=== PATIENT | female | born 1950 | race Caucasian/White ===

== ENCOUNTER 2018-04-20 15:38 | Outpatient (CLI) | payer MEDICARE | END 2018-04-20 15:39 | disposition home or self-care (01) | LOC: RT 15:38 | PROVIDERS: ATTEND Pain Medicine Interventional Pain Medicine | DX: Z01.810 Encounter for preprocedural cardiovascular examination (principal) ==

== ENCOUNTER 2021-05-29 11:17 | Outpatient (CLI) | payer MEDICARE, BC | END 2021-05-29 11:18 | disposition home or self-care (01) | LOC: LAB 11:17 | PROVIDERS: ATTEND Student in an Organized Health Care Education/Training Program | DX: R25.2 Cramp and spasm (principal) | CPT/HCPCS: 36415; 82728; 83735 ==

== ENCOUNTER 2021-07-21 10:02 | Outpatient (CLI) | payer MEDICARE ==
[2021-07-21 10:37] LABS: ALBUMIN 4.4 g/dL (3.2-5.5); ALBUMIN/GLOBULIN RATIO 1.4 (1.0-2.2); BILIRUBIN,TOTAL 0.2 mg/dL (0.2-1.0); CALCIUM 9.8 mg/dL (8.5-10.3); CREATININE 1.1 mg/dL (0.4-1.0); POTASSIUM 4.4 mmol/L (3.5-5.0); TOTAL PROTEIN 7.6 g/dL (6.7-8.2)
[2021-07-21 12:05] LABS: ESTIMATED AVERAGE GLUCOSE 189 mg/dL (70-100); HEMOGLOBIN A1c% 8.2 % (4.27-6.07)
== END 2021-07-21 10:03 | disposition home or self-care (01) ==
LOC: LAB 10:02
PROVIDERS: ATTEND Nurse Practitioner
DX: E11.9 Type 2 diabetes mellitus without complications (principal)
CPT/HCPCS: 36415; 80053; 82043; 83036

== ENCOUNTER 2021-10-22 10:48 | Outpatient (CLI) | payer MEDICARE | END 2021-10-22 10:49 | disposition short-term general hospital (02) | LOC: EMS 10:48 | DX: Z04.3 Encounter for examination and observation following other accident (principal); M25.512 Pain in left shoulder; M25.552 Pain in left hip | CPT/HCPCS: A0425; A0427 ==

== ENCOUNTER 2022-05-11 15:09 | Outpatient (CLI) | payer MEDICARE ==
--- NOTE | 2022-05-12 12:27 | DEXA Report ---
PROCEDURE: Dexa Forearm INDICATIONS: OSTEOPOROSIS TECHNIQUE: Dual energy x-ray absorptiometry (DXA) was performed on a Synchris System. Regions measur ed are the AP Spine, femoral neck, and if needed forearm. COMPARISON: None. FINDINGS: Lumbar Spine: Not scanned due to hardware Left Femoral Neck: Not scanned due to hardware Left forearm (radius one third): Bone Mineral Density 0.527 g/cm/cm, T score -4.0, osteoporosis (T score greater or equal to -1.0: NORMAL) (T score from -1.1 to -2.4: OSTEOPENIA) (T score less than or equal to -2.5 to: OSTEOPOROSIS) Impression: 1. Based on forearm bone mineral density, the patient is osteoporotic and has a high-risk of fracture . Patients with diagnosis of osteoporosis or osteopenia should have regular bone mineral density assess ment. For those eligible for Medicare, routine testing is allowed once every 2 years. Testing frequ ency can be increased for patients who have rapidly progressing disease or for those who are receivin g medical therapy to restore bone mass. Reviewed by: Sarah Teixeira MD on 05/12/2022 12:26 PM PST Approved by: Sarah Teixeira MD on 05/12/2022 12:26 PM PST Station ID: [id number]
== END 2022-05-11 15:10 | disposition home or self-care (01) ==
LOC: DI 15:09
PROVIDERS: ATTEND Student in an Organized Health Care Education/Training Program
DX: M81.0 Age-related osteoporosis without current pathological fracture (principal)

== ENCOUNTER 2025-01-25 10:13 | Inpatient (IN) ==
--- OUTSIDE RECORDS SUMMARY | 2025-01-25 10:36 | EXTERNAL MEDICAL SUMMARY RPT | Continuity of Care Document ---
Author Organization [place] Address [address] [address] Phone Problems date description facility 2024-12-21 15:44 Anemia, unspecified [facility] 2024-12-21 15:44 Other specified soft tissue dis orders [facility] 2024-12-21 15:44 Weakness [facility] 2025-01-04 10:27 Right lower quadrant pain [facility] 2025-01-04 10:28 Right lower quadrant pain [facility] 2025-01-04 10:31 Localized edema [facility] Results/Labs test date facility value unit notes Result panel 1 NUCLEATED RED BLOOD CELLS AUTO 2024-12-18 19:03 [facility] 0.0 /100wbc (missing) NRBC ABSOLUTE COUNT (AUTO) 2024-12-18 19:03 [facility] 0.00 x10 3/ul (missing) BASOPHILS # (AUTO) 2024-12-18 19:03 [facility] 0.1 10 3/ul (missing) EOSINOPHILS # (AUTO) 2024-12-18 19:03 [facility] 0.2 10 3/ul (missing) BILIRUBIN,TOTAL 2024-12-18 19:03 [facility] 0.5 mg/dl As of December 2022 testing method has changed, this may include reference ranges. MONOCYTES # (AUTO) 2024-12-18 19:03 [facility] 1.0 10 3/ul (missing) CREATININE 2024-12-18 19:03 [facility] 1.0 mg/dl As of December 2022 testing method has changed, this may include reference ranges. ALBUMIN/GLOBULIN RATIO 2024-12-18 19:03 [facility] 1.2 (missing) (missing) LYMPHOCYTES # (AUTO) 2024-12-18 19:03 [facility] 1.5 10 3/ul (missing) WHITE BLOOD COUNT 2024-12-18 19:03 [facility] 10.4 x10 3/ul (missing) SODIUM 2024-12-18 19:03 [facility] 134 mmol/l (missing) IRON 2024-12-18 19:03 [facility] 14 ug/dl As of December 2022 testing method has changed, this may include reference ranges. RED CELL DISTRIBUTION WIDTH 2024-12-18 19:03 [facility] 18.9 % (missing) GLUCOSE 2024-12-18 19:03 [facility] 189 mg/dl As of December 2022 testing method has changed, this may include reference ranges. RBC MORPHOLOGY (MULTIPLE) 2024-12-18 19:03 [facility] 2+ MICROCYTOSIS (missing) (missing) GLOBULIN 2024-12-18 19:03 [facility] 2.7 g/dl (missing) RED BLOOD COUNT 2024-12-18 19:03 [facility] 2.73 10 6/ul (missing) HCT - HEMATOCRIT 2024-12-18 19:03 [facility] 20.5 % (missing) MEAN CORPUSCULAR HEMOGLOBIN 2024-12-18 19:03 [facility] 20.9 pg (missing) BUN - BLOOD UREA NITROGEN 2024-12-18 19:03 [facility] 21 mg/dl As of December 2022 testing method has changed, this may include reference ranges. PLT - PLATELET COUNT 2024-12-18 19:03 [facility] 238 10 3/ul (missing) CARBON DIOXIDE - CO2 2024-12-18 19:03 [facility] 27 mmol/l As of December 2022 testing method has changed, this may include reference ranges. MEAN CORPUSCULAR HGB CONC 2024-12-18 19:03 [facility] 27.8 g/dl (missing) % IRON SATURATION 2024-12-18 19:03 [facility] 3 % (missing) RBC MORPHOLOGY (MULTIPLE) 2024-12-18 19:03 [facility] 3+ ANISOCYTOSIS (missing) (missing) RBC MORPHOLOGY (MULTIPLE) 2024-12-18 19:03 [facility] 3+ HYPOCHROMASIA (missing) (missing) ALBUMIN 2024-12-18 19:03 [facility] 3.2 g/dl As of December 2022 testing method has changed, this may include reference ranges. POTASSIUM 2024-12-18 19:03 [facility] 3.3 mmol/l As of December 2022 testing method has changed, this may include reference ranges. ALT ALANINE AMINOTRANSFERASE 2024-12-18 19:03 [facility] 30 iu/l As of December 2022 testing method has changed, this may include reference ranges. TRANSFERRIN 2024-12-18 19:03 [facility] 310 mg/dl As of December 2022 testing method has changed, this may include reference ranges. TOTAL IRON BINDING CAPACITY 2024-12-18 19: [facility] 434 ug/dl (missing) AST ASPARTATE AMINOTRANSFERASE 2024-12-18 19:03 [facility] 46 iu/l As of December 2022 testing method has changed, this may include reference ranges. BNP - B-NATRIURETIC PEPTIDE 2024-12-18 19:03 [facility] 487 pg/ml (missing) HGB - HEMOGLOBIN 2024-12-18 19:03 [facility] 5.7 g/dl Called to ED/SHIRA WATKINS by Luciano Hernandez [place]([facility]) [place] [address]/18/24. Read back(Y/N)? Y TOTAL PROTEIN 2024-12-18 19:03 [facility] 5.9 g/dl As of December 2022 testing method has changed, this may include reference ranges. GFR - MDRD 2024-12-18 19:03 [facility] 54 (missing) Social History date description facility
--- NOTE | 2025-01-25 10:39 | ED Physician Documentation ---
History of Present Illness Stated complaint Stated Complaint: CONFUSION, LOSS OF VISION, WEAKNESS Chief complaint Chief Complaint: General History obtained from History obtained from: Patient and Family Additonal information Additional information: 74-year-old with history of cirrhosis of unclear etiology. Was never really a drinker of significance. Is brought in by her today with progressive confusion over the last 5 days or so. Most of the history is from the because of her confusion. This all started a few months ago when she had edema. Since then, the edema is much better now that she is on diuretics. She is seeing a Dr. Mock, gastroenterology in [place]. She is supposed to be taking lactulose but has been noncompliant. Patient has no physical complaints except for chronic back pain. [place] Coma Scale Assess Eye opening: To Voice Verbal response: Confused Motor response: Obeys Commands Total score: 13 Meds/Allgy Allergies Allergies Allergy/AdvReac Type Severity Reaction Status Date / Time Penicillins Allergy Severe Anaphylaxis Verified 01/25/25 10:21 hydromorphone (From Dilaudid) Allergy Intermediate Headache Verified 01/25/25 10:21 Sulfa (Sulfonamide Allergy Mild Nausea Verified 01/25/25 10:21 Antibiotics) PFSH Active Problems All Active Problems (Updated 01/25/25 @ 12:16 by Samuel Mane MD) Cellulitis of left leg (Acute) Acute encephalopathy (Acute) Iron deficiency anemia (Acute) Heme positive stool (Acute) Acute anemia (Acute) Hepatocellular damage (Acute) Ascites (Acute) Medical History Medical History (Updated 01/25/25 @ 12:16 by Samuel Mane MD) Diabetes type 2, controlled Social History Social History Do you feel safe in your home environment?: Yes History of physical, verbal, emotional, or financial abuse?: No Exam Exam Vital Signs: Vital Signs x48h Temp Pulse Resp BP Pulse Ox 01/25/25 12:14 88 20 138/71 H 99 01/25/25 11:44 92 21 140/69 H 99 01/25/25 11:14 100 26 H 129/62 99 01/25/25 10:44 98 16 127/65 99 01/25/25 10:44 98 22 127/65 100 01/25/25 10:36 99 01/25/25 10:18 36.5 C 100 18 105/65 99 Constitutional normal general appearance and no apparent distress She is somnolent but awakens easily to voice. She is alert and oriented to person and place but not time/year or year and season. Eyes PERRL Respiratory breath sounds equal bilaterally and normal respiratory effort Cardiovascular Borderline resting tachycardia with hyperdynamic precordium. Regular rhythm without murmur. Gastrointestinal abdomen normal to inspection, abdomen soft to palpation and nontender to palpation Neurology GCS calculation - Eye opening: To Voice Verbal response: Confused Motor response: Obeys Commands [place] Coma Scale total score: 13 Results Vitals Vitals: Vital Signs - 24 hr 01/25/25 10:18 01/25/25 10:36 01/25/25 10:44 Temperature 36.5 C Temperature Source Temporal Artery Scan Pulse Rate 100 98 Respiratory Rate 18 22 Blood Pressure 105/65 127/65 O2 Saturation 99 99 100 O2 Source Room air Pain Intensity 0 01/25/25 10:44 01/25/25 11:14 01/25/25 11:44 Temperature Temperature Source Pulse Rate 98 100 92 Respiratory Rate 16 26 H 21 Blood Pressure 127/65 129/62 140/69 H O2 Saturation 99 99 99 O2 Source Pain Intensity 01/25/25 12:14 Temperature Temperature Source Pulse Rate 88 Respiratory Rate 20 Blood Pressure 138/71 H O2 Saturation 99 O2 Source Pain Intensity Oxygen O2 Source Room air Labs Labs: Laboratory Tests 01/25/25 01/25/25 01/25/25 10:40 10:40 11:42 WBC 11.6 H RBC 3.68 L Hgb 10.0 L Hct 32.1 L MCV 87.2 MCH 27.2 MCHC 31.2 L RDW 24.2 H Plt Count 263 MPV 10.0 Neut # (Auto) 8.3 H Lymph # (Auto) 1.6 Band[place] # (Auto) 1.0 Eos # (Auto) 0.5 Baso # (Auto) 0.1 Absolute Nucleated RBC 0.00 Nucleated RBC % 0.0 Manual Slide Review Indicated Platelet Estimate NORMAL (130-450,000) Platelet Morphology NORMAL APPEARANCE RBC Morph Micro Appear 2+ HYPOCHROMASIA 3+ ANISOCYTOSIS PT 12.4 INR 1.1 Sodium 130 L Potassium 3.8 Chloride 91 L Carbon Dioxide 29 Anion Gap 10.0 BUN 28 H Creatinine 1.1 Estimated GFR (MDRD) 49 L Glucose 361 H Calcium 9.7 Total Bilirubin 0.6 AST 27 ALT 25 Alkaline Phosphatase 118 Ammonia 66.8 Total Protein 8.1 Albumin 4.3 Globulin 3.8 Albumin/Globulin Ratio 1.1 Urine Color YELLOW Urine Clarity CLEAR Urine pH 6.0 Ur Specific [place] 1.015 Urine Protein NEGATIVE Urine Glucose (UA) 500 H Urine Ketones NEGATIVE Urine Occult Blood NEGATIVE Urine Nitrite NEGATIVE Urine Bilirubin NEGATIVE Urine Urobilinogen 0.2 (NORMAL) Ur Leukocyte Esterase NEGATIVE Ur Microscopic Review NOT INDICATED Urine Culture Comments NOT INDICATED Urine Opiates Screen NEGATIVE Ur Buprenorphine Scrn NEGATIVE Ur Oxycodone Screen POSITIVE H Urine Methadone Screen NEGATIVE Urine Fentanyl Screen Negative Ur Barbiturates Screen NEGATIVE Ur Tricyclics Screen NEGATIVE Ur Phencyclidine Scrn NEGATIVE Ur Amphetamine Screen NEGATIVE U Methamphetamines Scrn NEGATIVE U Benzodiazepines Scrn NEGATIVE Urine Cocaine Screen NEGATIVE U Cannabinoids Screen NEGATIVE Ur Drug Screen Comment CUTOFF CONC BELOW: Ethyl Alcohol < 10.0 Blood Type O POSITIVE Antibody Screen NEGATIVE PD Medical Decision Making ED course ED course: 74-year-old woman with her history of cirrhosis presents with progressive encephalopathy over the last few days. Workup demonstrates normal ammonia levels, mild leukocytosis and mild anemia with some CKD and elevated blood sugar. On reexamination nurse had noted a red area on the back of her left calf and she does have significant nonpurulent cellulitis there. I will culture her up and give her IV vancomycin noting history of anaphylaxis to penicillins. Th ere will be some delay to admission due to lack of beds. Spoke with AYLA Moon for admission at 1:19 PM. The patient and family are counseled as to the diagnosis and need for admission. This document was made in part using voice recognition software, while efforts are made to proofread this document, sound alike an grammatical errors may occur. Discharge Plan Discharge Patient Disposition: [facility] DC/Xfer Condition: Stable Clinical Impression: Acute encephalopathy, Cellulitis of left leg Print Language: Yakut
[2025-01-25 10:51] LABS: HCT - HEMATOCRIT 32.1 % (37.0-47.0); HGB - HEMOGLOBIN 10.0 g/dL (12.0-16.0); MEAN PLATELET VOLUME 10.0 fL (7.9-10.8); NRBC ABSOLUTE COUNT (AUTO) 0.00 x10^3/uL; NUCLEATED RED BLOOD CELLS AUTO 0.0 /100WBC; PLT - PLATELET COUNT 263 10^3/uL (130-450); RED CELL DISTRIBUTION WIDTH 24.2 % (12.0-15.0)
[2025-01-25 10:53] LABS: SLIDE REVIEW? Indicated
[2025-01-25 10:55] LABS: INR 1.1 (0.8-1.2); PT - PROTHROMBIN TIME 12.4 secs (9.9-12.6)
[2025-01-25 11:05] LABS: ALT ALANINE AMINOTRANSFERASE 25 IU/L (10-60); AST ASPARTATE AMINOTRANSFERASE 27 IU/L (10-42); BUN - BLOOD UREA NITROGEN 28 mg/dL (6-20); CARBON DIOXIDE - CO2 29 mmol/L (21-32); CREATININE 1.1 mg/dL (0.6-1.3); ETOH - ETHANOL < 10.0 mg/dL; GFR - MDRD 49 (>89)
[2025-01-25 11:17] LABS: PLATELET ESTIMATE, MANUAL NORMAL (130-450,000) (NORMAL); PLATELET MORPHOLOGY NORMAL APPEARANCE (NORMAL)
--- NOTE | 2025-01-25 11:38 | CT Report ---
PROCEDURE: CT Head WO INDICATIONS: ams TECHNIQUE: CT of the head was performed, without intravenous contrast. Reformats: Coronal and sagittal. For radiation dose reduction, the following was used: automated exposure control, adjustment of mA and/or kV according to patient size. COMPARISON: None. FINDINGS: Image quality: Diagnostic. CSF spaces: Basal cisterns are patent. No extra-axial fluid collections. Ventricles are normal in size and shape. Brain: No midline shift. No intracranial mass effect or hemorrhage. Molina- white matter interface is normal. Age appropriate volume loss and mild, age appropriate periventricular white matter hypoattenuation, likely chronic ischemic change. Skull and face: Calvarium and visualized facial bones are intact, without suspicious lesions. Sinuses: Visualized sinuses and mastoids are clear. IMPRESSION: No acute intracranial pathology. Reviewed by: Phillip Yo MD on 01/25/2025 11:36 AM PDT Approved by: Phillip Yo MD on 01/25/2025 11:36 AM PDT Station ID: [id number]
[2025-01-25 12:00] LABS: AMPHETAMINE SCREEN,URINE NEGATIVE (NEGATIVE); BARBITURATE SCREEN,UR NEGATIVE (NEGATIVE); BENZODIAZEPINES SCREEN, URINE NEGATIVE (NEGATIVE); BUPRENORPHINE SCREEN, URINE NEGATIVE (NEGATIVE); COCAINE SCREEN URINE NEGATIVE (NEGATIVE); GLUCOSE, URINE (UA) 500 mg/dL (NEGATIVE); KETONES,URINE (UA) NEGATIVE (NEGATIVE); METHADONE SCREEN, URINE NEGATIVE (NEGATIVE); METHAMPHETAMINES SCREEN, URINE NEGATIVE (NEGATIVE); OCCULT BLOOD,URINE NEGATIVE (NEGATIVE); OPIATE SCREEN, URINE NEGATIVE (NEGATIVE); THC CANNABINOID SCREEN, URINE NEGATIVE (NEGATIVE)
[2025-01-25] MEDS: VANCOMYCIN INJ 1 GM, VANCOMYCIN INJ 250 MG in SODIUM CHLORIDE 0.9% 250 ML IV STA (12:56)
--- OUTSIDE RECORDS SUMMARY | 2025-01-25 13:44 | EXTERNAL MEDICAL SUMMARY RPT | Continuity of Care Document ---
Author Organization [facility] Address [address] [address] Phone Problems date description facility 2024-12-21 15:44 [...] 3/ul (missing) WHITE BLOOD COUNT 2024-12-18 19:03 [email or web address] 10.4 x10 3/ul (missing) SODIUM 2024-12-18 19:03 [email or web address] 134 mmol/l (missing) IRON 2024-12-18 19:03 [email or web address] 14 ug/dl As of December 2022 testing method has changed, this may include reference ranges. RED CELL DISTRIBUTION WIDTH 2024-12-18 19:03 [email or web address] 18.9 % (missing) GLUCOSE 2024-12-18 19:03 [email or web address] 189 mg/dl As of December 2022 testing method has changed, this may include reference ranges. RBC MORPHOLOGY (MULTIPLE) 2024-12-18 19:03 [email or web address] 2+ MICROCYTOSIS (missing) (missing) GLOBULIN 2024-12-18 19:03 [email or web address] 2.7 g/dl (missing) RED BLOOD COUNT 2024-12-18 19:03 [email or web address] 2.73 10 6/ul (missing) HCT - HEMATOCRIT 2024-12-18 19:03 [email or web address] 20.5 % (missing) MEAN CORPUSCULAR HEMOGLOBIN 2024-12-18 19:03 [email or web address] 20.9 pg (missing) BUN - BLOOD UREA NITROGEN 2024-12-18 19:03 [email or web address] 21 mg/dl As of December 2022 testing method has changed, this may include reference ranges. PLT - PLATELET COUNT 2024-12-18 19:03 [email or web address] 238 10 3/ul (missing) CARBON DIOXIDE - CO2 2024-12-18 19:03 [email or web address] 27 mmol/l As of December 2022 testing method has changed, this may include reference ranges. MEAN CORPUSCULAR HGB CONC 2024-12-18 19:03 [email or web address] 27.8 g/dl (missing) % IRON SATURATION 2024-12-18 19:03 [email or web address] 3 % (missing) RBC MORPHOLOGY (MULTIPLE) 2024-12-18 19:03 [email or web address] 3+ ANISOCYTOSIS (missing) (missing) RBC MORPHOLOGY (MULTIPLE) 2024-12-18 19:03 [email or web address] 3+ HYPOCHROMASIA (missing) (missing) ALBUMIN 2024-12-18 19:03 [email or web address] 3.2 g/dl As of December 2022 testing method has changed, this may include reference ranges. POTASSIUM 2024-12-18 19:03 [email or web address] 3.3 mmol/l As of December 2022 testing method has changed, this may include reference ranges. ALT ALANINE AMINOTRANSFERASE 2024-12-18 19:03 [email or web address] 30 iu/l As of December 2022 testing method has changed, this may include reference ranges. TRANSFERRIN 2024-12-18 19:03 [email or web address] 310 mg/dl As of December 2022 testing method has changed, this may include reference ranges. TOTAL IRON BINDING CAPACITY 2024-12-18 19: [email or web address] 434 ug/dl (missing) AST ASPARTATE AMINOTRANSFERASE 2024-12-18 19:03 [email or web address] 46 iu/l As of December 2022 testing method has changed, this may include reference ranges. BNP - B-NATRIURETIC PEPTIDE 2024-12-18 19:03 [email or web address] 487 pg/ml (missing) HGB - HEMOGLOBIN 2024-12-18 19:03 [email or web address] 5.7 g/dl Called to ED/SHIRA WATKINS by Luciano Hernandez MT([facility]) [place] [address]/18/24. Read back(Y/N)? Y TOTAL PROTEIN 2024-12-18 19:03 [email or web address] 5.9 g/dl As of December 2022 testing method has changed, this may include reference ranges. GFR - MDRD 2024-12-18 19:03 [email or web address] 54 (missing) Social History date description facility
[2025-01-25] MEDS ORDERED: ONDANSETRON 4 MG/2 ML VIAL IVP PRN (14:04)
[2025-01-25] MEDS ORDERED: ONDANSETRON ODT 4 MG TABLET TL PRN (14:04)
[2025-01-25] MEDS ORDERED: SODIUM CHLORIDE FLUSH 0.9% 10 ML SYRINGE IVP PRN (14:04)
--- NOTE | 2025-01-25 14:10 | HISTORY & PHYSICAL EXAMINATION ---
Chief Complaint Chief Complaint Chief Complaint: confusion and weakness History of Present Illness History Obtained From Records Reviewed: previous ED visits History obtained from: Patient Exam Limitations: Patient is cognitively altered History of Present Illness HPI Comment/Other: 74F who presents to ED with 4 days of altered mental status, getting worse. no falls at home, no fevers. She says that she feels poorly, but that has been going on for many months now, almost a year. There is no one present at the bedside with her. She is not able to give much history. She is not able to tell me how she is feeling poorly, what is bothering her. She has a history of ascites, unclear etiology of her liver cirrhosis. on lactulose, Type 2 DM on glargine insulin, hypothyroidism, COPD, chronic pain, and iron def anemia She is able to tell me that she lives with her and son, the name of her PCP and that she no longer drives and walks with a walker. Meds/Allgy Home Medications Ambulatory Orders Medication Instructions Recorded Confirmed albuterol sulfate 2.5 mg/3 mL 2.5 mg inhalation Q4H WA N 01/25/25 01/25/25 (0.083 %) solution for nebulization shortness of breat h or wheezing albuterol sulfate 90 mcg/actuation 2 puff inhalation Q ID 01/25/25 01/25/25 aerosol inhaler cetirizine 10 mg tablet (Zyrtec) 5 mg PO DAILY 5 01/25/25 ferrous sulfate 325 mg (65 mg 325 mg PO Q48H 01/25/25 01/25/25 iron) tablet furosemide 40 mg tablet 40 mg PO TID 01/25/25 hydrochlorothiazide 25 mg tablet 25 mg PO DAILY PRN FL UID OVERLOAD 01/25/25 01/25/25 insulin glargine 100 unit/mL (3 24 unit subcut QPM 01/25/25 mL) subcutaneous pen (Lantus Solostar U-100 Insulin) lactulose 10 gram/15 mL oral 20 - 40 ml PO BID PRN con stipation 01/25/25 01/25/25 solution (Enulose) levothyroxine 75 mcg tablet 75 mcg PO QDAC 01/25/25 lidocaine 5 % topical patch 1 patch topical QAM 01/25/25 mometasone-formoterol HFA 50 mcg-5 2 inh inhalation BI D 01/25/25 01/25/25 mcg/actuation aerosol inhaler (Dulera) nortriptyline 10 mg capsule 10 mg PO HS 01/25/2501/25 nystatin 100,000 unit/gram topical 1 applic topical BI D 01/25/25 01/25/25 ointment oxycodone 5 mg tablet 5 - 10 mg PO BID PRN pain 01/25/25 potassium citrate 10 mEq (1,080 10 meq PO BID 01/25/25 01/25/25 mg) tablet,extended release spironolactone 100 mg tablet 100 mg PO DAILY 01/25/25 01/25/25 vitamin B complex (Vitamins B 1 cap PO DAILY 01/25/25 01/25/25 Complex capsule) Allergies Allergies Allergy/AdvReac Type Severity Reaction Status Date / Time Penicillins Allergy Severe Anaphylaxis Verified 01/25/25 10:21 hydromorphone (From Dilaudid) Allergy Intermediate Headache Verified 01/25/25 10:21 Sulfa (Sulfonamide Allergy Mild Nausea Verified 01/25/25 10:21 Antibiotics) PFSH Active Problems All Active Problems (Updated 01/25/25 @ 19:18 by AYLA Delarosa) Hypothyroid (Acute) Cellulitis of left leg (Acute) Acute encephalopathy (Acute) Iron deficiency anemia (Acute) Heme positive stool (Acute) Acute anemia (Acute) Hepatocellular damage (Acute) Ascites (Acute) Medical History Medical History (Updated 01/25/25 @ 19:18 by AYLA Delarosa) Diabetes type 2, controlled Family History Family History (Updated 01/25/25 @ 15:01 by Juno Escalante, QUINCY) Other Depressed Social History Social History Do you dip or chew tobacco?: No Do you vape?: No Do you feel safe in your home environment?: Yes History of physical, verbal, emotional, or financial abuse?: No Substance Use: denies use Review of Systems Status of ROS: unobtainable due to medical condition Prior Level of Functionality: no longer drives, uses a walker, lives w . Exam Exam Vital Signs: Vital Signs x48h Temp Pulse Resp BP Pulse Ox 01/25/25 16:40 36.4 C L 86 13 134/63 H 99 Constitutional appears chronically ill. oriented to self and place, but not time HENAL normocephalic and hearing grossly normal bilaterally Eyes conjunctivae normal and no scleral icterus Neck/C-Spine visual inspection normal and trachea midline Lymph no lymphadenopathy noted Chest inspection of chest normal Respiratory breath sounds equal bilaterally, normal respiratory effort and clear to auscultation bilaterally Cardiovascular normal heart rate noted Gastrointestinal abdomen soft to palpation and nondistended Extremities edema, left posterior calf cellulitis, with erythema and warmth. Neurology GCS 13 Psychiatry cooperative slow to answer questions Skin skin color normal cellulitis at left calf. Conclusion/Plan Problem List (1) Acute encephalopathy: Plan: Altered mental status in the setting of known liver cirrhosis, but normal ammonia levels. Patient has been non complaint with her lactulose, but this is likely non contributory. Discussed with Dr Mane in the ED and decision was made to admit the patient to observation status for further evaluation of her AMS. She has a GCS of 13: 2 points off for eyes open to voice and verbal for confusion. She has a mild leukocytosis and cellulitis of her left calf. Her encephalopathy could be multifactorial. Blood cultures have been ordered in the ED and she has been started on vancomycin (PCN allergy). I am continuing her diuretic tx for cirrhosis as well as lactulose 20gBID, and checking daily ammonia levels. She has no focal neurological deficit, therefore I will hold off on an MRI of the brain. (2) Cellulitis of left leg: Plan: non purulent cellulitis of the left calf. The patient was unaware of this. She is not particularly tender, no palpable cord or area of fluctuance. She has some mild excoration of bilateral lower extremities, as well as some elephant- skin like appearance of the lower extremites, as if she has recently had edema which has resolved. Anaphylactic allergy to PCN, so will start on Vanc, pharmacy to dose. She has a leukocytosis of 11.6, and has not run any fevers. (3) Diabetes type 2, controlled: Plan: She is on 24U daily of glargine insulin, at home. I do not see any other DM meds in her profile. here, i will give her 10u glarigine at HS and place her on low SSI. Prefer to avoid hypoglycemia. (4) Hypothyroid: Plan: home med of synthroid 75mcg has been restarted. I have spent 78 minutes in the care of this patient today. This includes time [id number], review and ordering of diagnostic imaging and laboratory studies and consultation with other providers. Monitoring the patient's signs symptoms, evaluation of medication effectiveness and patient's response to treatment. Lab Results Lab results reviewed: Yes 01/25/25 10:40 01/25/25 10:40 Core Measures Anticipated LOS I expect patient to be DC'd or transferred within 96 hours.: Yes Issues Hospital Issues and Management Plan: AMS, workup and observation, treatment of cellulitis, monitoring of WBC, follow blood cultures. DVT/VTE - Prophylaxis VTE/DVT Device ordered at admit?: Yes VTE/DVT Prophylaxis med ordered at admit?: Yes
[2025-01-25] MEDS: SODIUM CHLORIDE 0.9% 1,000 ML IV SCH (14:33)
--- NOTE | 2025-01-25 16:45 | PHARMACY PROGRESS NOTE ---
Best Possible Medication History Admit Date and Time: 01/25/25 [id number] Home Medications Medication Instructions Recorded Confirmed Type albuterol sulfate 2.5 mg/3 mL 2.5 mg inhalation Q4H PA N 01/25/25 01/25/25 History (0.083 %) solution for nebulization shortness of breat h or wheezing albuterol sulfate 90 mcg/actuation 2 puff inhalation Q ID 01/25/25 01/25/25 History aerosol inhaler cetirizine 10 mg tablet (Zyrtec) 5 mg PO DAILY 5 01/25/25 History ferrous sulfate 325 mg (65 mg 325 mg PO Q48H 01/25/25 01/25/25 History iron) tablet furosemide 40 mg tablet 40 mg PO TID 01/25/25 History hydrochlorothiazide 25 mg tablet 25 mg PO DAILY PRN FL UID OVERLOAD 01/25/25 01/25/25 History insulin glargine 100 unit/mL (3 24 unit subcut QPM 01/25/25 History mL) subcutaneous pen (Lantus Solostar U-100 Insulin) lactulose 10 gram/15 mL oral 20 - 40 ml PO BID PRN con stipation 01/25/25 01/25/25 History solution (Enulose) levothyroxine 75 mcg tablet 75 mcg PO QDAC 01/25/25 History lidocaine 5 % topical patch 1 patch topical QAM 01/25/25 History mometasone-formoterol HFA 50 mcg-5 2 inh inhalation BI D 01/25/25 01/25/25 History mcg/actuation aerosol inhaler (Dulera) nortriptyline 10 mg capsule 10 mg PO HS 01/25/2501/25 History nystatin 100,000 unit/gram topical 1 applic topical BI D 01/25/25 01/25/25 History ointment oxycodone 5 mg tablet 5 - 10 mg PO BID PRN pain 01/25/25 History potassium citrate 10 mEq (1,080 10 meq PO BID 01/25/25 01/25/25 History mg) tablet,extended release spironolactone 100 mg tablet 100 mg PO DAILY 08/21/25 08/21/25 History vitamin B complex (Vitamins B 1 cap PO DAILY 01/25/25 01/25/25 History Complex capsule) Processed by: Pharmacy Medications reviewed in ED?: No Medication History completed: Yes Patient Interview: Pt unable to participate Secondary Source(s): Written medication list and Insurance records [facility] Statement: As the person ultimately responsible for medication therapy, providers are able to order a medication from an existing home medication list in [facility] via the "Reconcile Routine" prior to Confirmation of that medication by support associate. Such practice is discouraged except when the physician, in their clinical jessica gment, deems that a medical need exists for a medication without regard to previous use.
[2025-01-25] MEDS: ACETAMINOPHEN 325 MG TABLET PO PRN (17:11)
[2025-01-25] MEDS: SODIUM CHLORIDE FLUSH 0.9% 10 ML SYRINGE IVP SCH (17:12)
[2025-01-25] MEDS ORDERED: ALBUTEROL NEB 2.5 MG/3 ML INH PRN (19:16)
[2025-01-25] MEDS ORDERED: LACTULOSE 10 GM /15 ML UDC PO PRN (19:16)
[2025-01-25] MEDS: FERROUS SULFATE 325 MG TABLET PO SCH (21:05)
[2025-01-25] MEDS: INSULIN GLARGINE-YFGN 300 UNIT/3 ML PEN SUBQ SCH (21:06)
[2025-01-25] MEDS: INSULIN LISPRO 300 UNIT/3 ML PEN SUBQ SCH (21:07)
[2025-01-25] MEDS: NORTRIPTYLINE 10 MG PO SCH (21:12)
[2025-01-25] MEDS: POTASSIUM CITRATE PO SCH (21:12)
[2025-01-25] MEDS: FUROSEMIDE 40 MG TABLET PO SCH (21:15)
[2025-01-26] MEDS: oxyCODONE 5 MG TABLET PO PRN (00:31)
[2025-01-26 05:56] LABS: HCT - HEMATOCRIT 34.2 % (37.0-47.0); HGB - HEMOGLOBIN 10.0 g/dL (12.0-16.0); MEAN PLATELET VOLUME 10.5 fL (7.9-10.8); NRBC ABSOLUTE COUNT (AUTO) 0.00 x10^3/uL; NUCLEATED RED BLOOD CELLS AUTO 0.0 /100WBC; PLT - PLATELET COUNT 278 10^3/uL (130-450); RED CELL DISTRIBUTION WIDTH 24.2 % (12.0-15.0)
[2025-01-26 06:05] LABS: SLIDE REVIEW? Indicated
[2025-01-26 06:20] LABS: BUN - BLOOD UREA NITROGEN 28.0 mg/dL (6-20); CARBON DIOXIDE - CO2 28.0 mmol/L (21-32); CREATININE 0.9 mg/dL (0.6-1.3); GFR - MDRD 61.0 (>89)
[2025-01-26 06:35] LABS: PLATELET ESTIMATE, MANUAL NORMAL (130-450,000) (NORMAL); PLATELET MORPHOLOGY NORMAL APPEARANCE (NORMAL)
[2025-01-26] MEDS: LEVOTHYROXINE 75 MCG TABLET PO SCH (06:47)
[2025-01-26] MEDS: ENOXAPARIN 40 MG/0.4 ML SYRINGE SUBQ SCH (08:59)
[2025-01-26] MEDS: SPIRONOLACTONE 25 MG TABLET PO SCH (08:59)
[2025-01-26] MEDS ORDERED: FORMOTEROL FUMARATE NEB 20 MCG/2 ML INH SCH (09:00)
[2025-01-26] MEDS: CETIRIZINE 10 MG TABLET PO SCH (09:00)
[2025-01-26] MEDS ORDERED: FLUTICASONE NASAL SPRAY NAS SCH (09:00)
[2025-01-26] MEDS: FORMOTEROL FUMARATE NEB 20 MCG/2 ML INH SCH (11:04)
[2025-01-26] MEDS: BUDESONIDE 0.5 MG/2 ML NEB INH SCH (11:04)
[2025-01-26 11:47] LABS: ESTIMATED AVERAGE GLUCOSE 143 mg/dL (70-100); HEMOGLOBIN A1c% 6.6 % (4.27-6.07)
[2025-01-26] MEDS ORDERED: VANCOMYCIN INJ 1 GM in SODIUM CHLORIDE 0.9% 250 ML IV SCH (13:00)
--- NOTE | 2025-01-26 14:57 | PROVIDER PROGRESS NOTE ---
Subjective Prog Note Date Prog Note Date: 01/26/25 Subjective Subjective: She feels like she is back at baseline. She is able to get to the bathroom with a walker. I noted the red rash on bilateral calves. She says she has had this itchy rash since last fall (She tells me that all of her symptoms started last fall). 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 Her baseline ammonia is unknown. Current Medications Current Medications Current Medications: Current Medications Generic Name Dose Route Start Last Admin Trade Name Freq PRN Reason Stop Dose Admin Acetaminophen 650 mg 01/25/25 14:04 01/25/25 17:11 Acetaminophen 325 Mg Tablet PO 650 mg Q4HR PRN Administration Pain 1 to 4, or Fever Albuterol 2.5 mg 01/25/25 19:16 Albuterol Neb 2.5 Mg/3 Ml INH Q4H PRN shortness of breath or wheezing Budesonide 0.5 mg 01/26/25 09:00 01/26/25 11:04 Budesonide 0.5 Mg/2 Ml Neb INH Not Given RTBID VANCE Cefazolin Sodium 2 gm 01/26/25 13:00 01/26/25 12:40 Cefazolin 2 Gm Vial IVP 2 gm Q8H VANCE Administration Cetirizine HCl 5 mg 01/26/25 09:00 01/26/25 09:00 Cetirizine 10 Mg Tablet PO 5 mg DAILY VANCE Administration Enoxaparin Sodium 40 mg 01/26/25 09:00 01/26/25 08:59 Enoxaparin 40 Mg/0.4 Ml Syringe SUBQ 40 mg DAILY VANCE Administration Ferrous Sulfate 325 mg 01/25/25 20:00 01/25/25 21:05 Ferrous Sulfate 325 Mg Tablet PO 325 mg Q48H VANCE Administration Formoterol Fumarate 20 mcg 01/26/25 09:00 01/26/25 11:04 Formoterol Fumarate Neb 20 Mcg/2 Ml INH Not Given RTBID VANCE Furosemide 40 mg 01/25/25 22:00 01/26/25 06:47 Furosemide 40 Mg Tablet PO 40 mg TID VANCE Administration Insulin Glargine-yfgn 10 unit 01/25/25 21:00 01/25/25 21:06 Insulin Glargine-Yfgn 300 Unit/3 Ml Pen SUBQ 10 unit QPM VANCE Administration Insulin Human Lispro 1 - 5 unit 01/25/25 21:00 01/26/25 12:22 Insulin Lispro 300 Unit/3 Ml Pen SUBQ 4 unit 0800,1200,1700,2100 VANCE Administration Protocol Lactulose 20 gm 01/25/25 19:16 Lactulose 10 Gm /15 Ml Udc PO BID PRN Constipation Levothyroxine Sodium 75 mcg 01/26/25 07:00 01/26/25 06:47 Levothyroxine 75 Mcg Tablet PO 75 mcg QDAC VANCE Administration Lidocaine 1 patch 01/25/25 20:00 01/26/25 08:59 Lidocaine Patch 4% TOP 1 patch DAILY VANCE Administration Patient Own Med (( 10 mg 01/25/25 21:00 01/25/25 21:12 Nortriptyline 10 Mg PO Not Given Capsule)) [facility] Ondansetron HCl 4 mg 01/25/25 14:04 Ondansetron 4 Mg/2 Ml Vial IVP Q6HR PRN Nausea / Vomiting Ondansetron HCl 4 mg 01/25/25 14:04 Ondansetron Odt 4 Mg Tablet TL Q6HR PRN Nausea / Vomiting Oxycodone HCl 5 mg 01/25/25 14:04 01/26/25 12:40 Oxycodone 5 Mg Tablet PO 5 mg Q4HR PRN Administration Pain 5 to 7 Potassium Chloride 10 meq 01/27/25 08:00 Potassium Chloride 10 Meq Capsule PO BIDWM [facility] Sodium Chloride 10 ml 01/25/25 14:04 Sodium Chloride Flush 0.9% 10 Ml Syringe IVP PRN PRN NEEDED PER PROVIDER ORDERS Sodium Chloride 10 ml 01/25/25 17:00 01/26/25 08:59 Sodium Chloride Flush 0.9% 10 Ml Syringe IVP 10 ml 0100,0900,1700 VANCE Administration Spironolactone 100 mg 01/26/25 09:00 01/26/25 08:59 Spironolactone 25 Mg Tablet PO 100 mg DAILY VANCE Administration Sterile Water 10 ml 01/26/25 13:00 01/26/25 12:40 Water For Injection,Sterile 10 Ml Vial MC 10 ml Q8H VANCE Administration Objective Vital Signs/Intake & Output Reviewed Vital Signs: Yes Intake & Output: Intake & Output 08/19/01/24/25 01/25/25 01/26/25 23:59 23:59 23:59 23:59 Intake Total 1010 / 1010 1485 / 1485 Output Total 1750 / 1750 Balance 1010 / 1010 -265 / -265 Weight (kg) 62 kg 59 kg Objective General Appearance: positive No acute distress and Alert Eyes Bilateral: positive Normal inspection and Conjunctivae nml ENT: positive ENT inspection nml Neck: positive Nml inspection Respiratory: positive Chest non-tender and Breath sounds nml Cardiovascular: positive Regular rate & rhythm Abdomen: positive No distention Skin: positive Color nml and Other (bilateral posterior calf erythematous warm rash with raised papules. not tender. no skin thickening as with chronic inflammation. ) Extremities: positive No pedal edema Neurologic/Psychiatric: positive Oriented x3 Lab Results 01/26/25 05:47 01/26/25 05:47 Other Labs: Lab Results x24hrs 01/26/25 01/26/25 01/26/25 Range/Units 11:50 07:58 05:47 WBC (4.8-10.8) x10^3/uL RBC (4.20-5.40) 10^6/uL Hgb (12.0-16.0) g/dL Hct (37.0-47.0) % MCV (81.0-99.0) fL MCH (27.0-31.0) pg MCHC (32.0-36.0) g/dL RDW (12.0-15.0) % Plt Count (130-450) 10^3/uL MPV (7.9-10.8) fL Neut # (Auto) (1.5-6.6) 10^3/uL Lymph # (Auto) (1.5-3.5) 10^3/uL [place] # (Auto) (0.0-1.0) 10^3/uL Eos # (Auto) (0.0-0.7) 10^3/uL Baso # (Auto) (0.0-0.1) 10^3/uL Absolute Nucleated RBC x10^3/uL Nucleated RBC % /100WBC Manual Slide Review Platelet Estimate (NORMAL) Platelet Morphology (NORMAL) RBC Morph Micro Appear 2+ HYPOCHROMASIA (NORMAL) Sodium 136 (135-145) mmol/L Potassium 4.1 (3.5-4.5) mmol/L Chloride 98 L (101-111) mmol/L Carbon Dioxide 28 (21-32) mmol/L Anion Gap 10.0 (6-13) BUN 28 H (6-20) mg/dL Creatinine 0.9 (0.6-1.3) mg/dL Estimated GFR (MDRD) 61 L (>89) Glucose 205 H (74-104) mg/dL POC Whole Bld Glucose 280 225 (70-100) mg/dL Estimat Average Glucose 143 H (70-100) mg/dL Hemoglobin A1c % 6.6 H (4.27-6.07) % Calcium 9.5 (8.5-10.3) mg/dL Ammonia 73.2 H (18-72) umol/L 01/26/25 01/25/25 Range/Units 05:47 20:27 WBC 10.7 (4.8-10.8) x10^3/uL RBC 3.83 L (4.20-5.40) 10^6/uL Hgb 10.0 L (12.0-16.0) g/dL Hct 34.2 L (37.0-47.0) % MCV 89.3 (81.0-99.0) fL MCH 26.1 L (27.0-31.0) pg MCHC 29.2 L (32.0-36.0) g/dL RDW 24.2 H (12.0-15.0) % Plt Count 278 (130-450) 10^3/uL MPV 10.5 (7.9-10.8) fL Neut # (Auto) 7.3 H (1.5-6.6) 10^3/uL Lymph # (Auto) 1.6 (1.5-3.5) 10^3/uL [place] # (Auto) 0.9 (0.0-1.0) 10^3/uL Eos # (Auto) 0.7 (0.0-0.7) 10^3/uL Baso # (Auto) 0.1 (0.0-0.1) 10^3/uL Absolute Nucleated RBC 0.00 x10^3/uL Nucleated RBC % 0.0 /100WBC Manual Slide Review Indicated Platelet Estimate NORMAL (130-450,000) (NORMAL) Platelet Morphology NORMAL APPEARANCE (NORMAL) RBC Morph Micro Appear 2+ ANISOCYTOSIS (NORMAL) Sodium (135-145) mmol/L Potassium (3.5-4.5) mmol/L Chloride (101-111) mmol/L Carbon Dioxide (21-32) mmol/L Anion Gap (6-13) BUN (6-20) mg/dL Creatinine (0.6-1.3) mg/dL Estimated GFR (MDRD) (>89) Glucose (74-104) mg/dL POC Whole Bld Glucose 415 (70-100) mg/dL Estimat Average Glucose (70-100) mg/dL Hemoglobin A1c % (4.27-6.07) % Calcium (8.5-10.3) mg/dL Ammonia (18-72) umol/L Assessment/Plan Problem List (1) Acute encephalopathy: Impression: Altered mental status in the setting of known liver cirrhosis, but normal ammonia levels. Patient has been non complaint with her lactulose, but this is likely non contributory. I have restarted her lactulose, and she had on large BM today. Her ammonia was66 on admit, and 73 today. her mental status is improving. I am continuing her diuretic tx for cirrhosis as well as lactulose 20gBID, and checking daily ammonia levels. She has no focal neurological deficit, therefore I will hold off on an MRI of the brain. Her mental status is improving. Today, she is much faster when answering questions, and moving about the room with standby asssitance by staff. (2) Bilateral lower leg cellulitis: Impression: non purulent cellulitis, bilateral posterior calf areas. The patient was unaware of this. She is not particularly tender, no palpable cord or area of fluctuance. She has some mild excoration of bilateral lower extremities, as well as some elephant-skin like appearance of the lower extremites, as if she has recently had edema which has resolved. changed to Ancef today via pharmacy. She has tolerated this well. leukocytosis improved. . (3) Diabetes type 2, controlled: Impression: She is on 24U daily of glargine insulin, at home. I do not see any other DM meds in her profile. here, i will give her 10u glarigine at HS. her SSI has been bumped up to moderate, as her blood sugars have been elevated. Laboratory Tests 08/21/25 08/22/25 08/22/25 20:27 05:47 07:58 POC Whole Bld Glucose 415 225 Hemoglobin A1c % 6.6 H 01/26/25 11:50 POC Whole Bld Glucose 280 Hemoglobin A1c % Her A1C indicates good control on a daily basis. (4) Hypothyroid: Impression: home med of synthroid 75mcg has been restarted. This patient's diagnosis and treatment plan was discussed this AM with attending physician as a part of multi disciplinary rounding meeting. I have spent 36 minutes in the care of this patient today. This includes time [id number], review and ordering of diagnostic imaging and laboratory studies. Monitoring the patient's signs symptoms, evaluation of medication effectiveness and patient's response to treatment.
[2025-01-26] MEDS: INSULIN LISPRO 300 UNIT/3 ML PEN SUBQ SCH (17:25)
[2025-01-27 06:54] LABS: HCT - HEMATOCRIT 32.9 % (37.0-47.0); HGB - HEMOGLOBIN 10.1 g/dL (12.0-16.0); MEAN PLATELET VOLUME 9.8 fL (7.9-10.8); NRBC ABSOLUTE COUNT (AUTO) 0.00 x10^3/uL; NUCLEATED RED BLOOD CELLS AUTO 0.0 /100WBC; PLT - PLATELET COUNT 250 10^3/uL (130-450); RED CELL DISTRIBUTION WIDTH 23.8 % (12.0-15.0)
[2025-01-27 07:10] LABS: BUN - BLOOD UREA NITROGEN 26.0 mg/dL (6-20); CARBON DIOXIDE - CO2 29.0 mmol/L (21-32); CREATININE 1.2 mg/dL (0.6-1.3); GFR - MDRD 44.0 (>89)
[2025-01-27] MEDS ORDERED: INSULIN LISPRO 300 UNIT/3 ML PEN SUBQ SCH (08:00)
[2025-01-27] MEDS: POTASSIUM CHLORIDE 10 MEQ CAPSULE PO SCH (08:25)
--- NOTE | 2025-01-27 10:26 | Discharge Summary ---
"Discharge Summary Admit Date: 01/25/25 Discharge Date: 01/27/25 Discharging Provider: Alice Moon PA-C Primary Care Provider: Darrell Nieves MD Code Status: Do Not Attempt Resuscitation DIAGNOSES Discharge Diagnoses with Status of Each Condition: Acute encephalopathy, resolved Bilateral lower extremity cellulitis, resolving Lower extremity dermatitis Type 2 diabetes, controlled Hypothyroidism, chronic. HPI History of Present Illness: 74F who presents to ED with 4 days of altered mental status, getting worse. no falls at home, no fevers. She says that she feels poorly, but that has been going on for many months now, almost a year. There is no one present at the bedside with her. She is not able to give much history. She is not able to tell me how she is feeling poorly, what is bothering her. She has a history of ascites, unclear etiology of her liver cirrhosis. on lactulose, Type 2 DM on glargine insulin, hypothyroidism, COPD, chronic pain, and iron def anemia She is able to tell me that she lives with her and son, the name of her PCP and that she no longer drives and walks with a walker CONSULTS | PROCEDURES Procedures: Head CT: No acute intracranial pathology HOSPITAL COURSE Hospital Course: Brought into the ED by her for altered mental status. History of ascites with unclear etiology of liver cirrhosis takes lactulose as needed her ammonia level was not significantly elevated. She did have a slight leukocytosis which resolved after institution of antibiotics. started with vancomycin due to anaphylactic PCN allergy. Changed to Ancef after consultation with pharmacy and tolerated this well. By hospital day 2, mental status vastly improved even though ammonia remained about the same. received abx through HD #3, and discharged to home in stable condition. She will go home on 5 d Keflex treatment. recommended PCP followup 7-10d ALLERGIES Allergies Allergy/AdvReac Type Severity Reaction Status Date / Time Penicillins Allergy Severe Anaphylaxis Verified 01/25/25 10:21 hydromorphone (From Dilaudid) Allergy Intermediate Headache Verified 01/25/25 10:21 Sulfa (Sulfonamide Allergy Mild Nausea Verified 01/25/25 10:21 Antibiotics) MEDICATIONS Ambulatory Orders Medication Instructions Recorded Confirmed albuterol sulfate 2.5 mg/3 mL 2.5 mg inhalation Q4H NH N 01/25/25 01/25/25 (0.083 %) solution for nebulization shortness of breat h or wheezing albuterol sulfate 90 mcg/actuation 2 puff inhalation Q ID 01/25/25 01/25/25 aerosol inhaler cetirizine 10 mg tablet (Zyrtec) 5 mg PO DAILY 01/25/2 5 01/25/25 ferrous sulfate 325 mg (65 mg 325 mg PO Q48H 01/25/25 01/25/25 iron) tablet furosemide 40 mg tablet 40 mg PO TID 01/25/25 hydrochlorothiazide 25 mg tablet 25 mg PO DAILY PRN FL UID OVERLOAD 01/25/25 01/25/25 insulin glargine 100 unit/mL (3 24 unit subcut QPM 01/25/25 mL) subcutaneous pen (Lantus Solostar U-100 Insulin) lactulose 10 gram/15 mL oral 20 - 40 ml PO BID PRN con stipation 01/25/25 01/25/25 solution (Enulose) levothyroxine 75 mcg tablet 75 mcg PO QDAC 01/25/25 lidocaine 5 % topical patch 1 patch topical QAM 01/25/25 mometasone-formoterol HFA 50 mcg-5 2 inh inhalation BI D 01/25/25 01/25/25 mcg/actuation aerosol inhaler (Dulera) nortriptyline 10 mg capsule 10 mg PO HS 01/25/2501/25 nystatin 100,000 unit/gram topical 1 applic topical BI D 01/25/25 01/25/25 ointment oxycodone 5 mg tablet 5 - 10 mg PO BID PRN pain 01/25/25 potassium citrate 10 mEq (1,080 10 meq PO BID 01/25/25 01/25/25 mg) tablet,extended release spironolactone 100 mg tablet 100 mg PO DAILY 01/25/25 01/25/25 vitamin B complex (Vitamins B 1 cap PO DAILY 01/25/25 01/25/25 Complex capsule) cephalexin 500 mg capsule 500 mg PO QID #20 caps 01/27 clobetasol 0.05 % topical cream 1 applic topical BID 1 week #45 01/27/25 grams PHYSICAL EXAM AT DISCHARGE Vital Signs: Vital Signs x48h Temp Pulse Resp BP Pulse Ox 01/27/25 13:36 36.4 C L 101 H 18 124/55 L 98 Physical Exam Other/Comments: General Appearance: positive No acute distress and Alert Eyes Bilateral: positive Normal inspection and Conjunctivae nml ENT: positive ENT inspection nml Neck: positive Nml inspection Respiratory: positive Chest non-tender and Breath sounds nml Cardiovascular: positive Regular rate & rhythm Abdomen: positive No distention Skin: positive Color nml and Other (bilateral posterior calf erythematous warm rash with raised papules. not tender. no skin thickening as with chronic inflammation. ) Extremities: positive No pedal edema Neurologic/Psychiatric: positive Oriented x3 LABS 01/27/25 06:47 01/27/25 06:47 FOLLOW UP Follow Up: PCP 7-10 d. TIME SPENT Time Spent in Discharge (Minutes): 35 Discharge Plan Discharge Patient Disposition: 01 Home, Self Care Condition: Stable Prescriptions: New cephalexin 500 mg capsule 500 mg PO QID Qty: 20 0RF clobetasol 0.05 % cream 1 applic topical BID 7 Days Qty: 45 0RF Continued furosemide 40 mg tablet 40 mg PO TID albuterol sulfate 2.5 mg /3 mL (0.083 %) solution for nebulization 2.5 mg inhalation Q4H PRN (Reason: shortness of breath or wheezing) Patient Comments: INHALE 3 ML FROM NEBULIZER EVERY 4 TO 6 HOURS NEEDED FOR WHEEZING OR SHORTNESS OF BREATH. nystatin 100,000 unit/gram ointment 1 applic TOPICAL BID Patient Comments: apply 1 gram to affected area twice a day spironolactone 100 mg tablet 100 mg PO DAILY levothyroxine 75 mcg tablet 75 mcg PO QDAC nortriptyline 10 mg capsule 10 mg PO HS hydrochlorothiazide 25 mg tablet 25 mg PO DAILY PRN (Reason: FLUID OVERLOAD) Patient Comments: take 1 tablet by mouth once daily if needed albuterol sulfate 90 mcg/actuation HFA aerosol inhaler 2 puff INHALATION QID Patient Comments: inhale 2 puffs by mouth four times a day DO NOT EXCEED 10 puffs IN 24 HOURS oxycodone 5 mg tablet 5 - 10 mg PO BID PRN (Reason: pain) Patient Comments: TAKE 1-2 TABLETS BY MOUTH TWO TIMES DAILY NEEDED FOR PAIN. MAX DAILY AMOUNT: 15 MG. lactulose [Enulose] 10 gram/15 mL solution 20 - 40 ml PO BID PRN (Reason: constipation) Patient Comments: TAKE 20 TO 40 MILLILITERS TWICE DAILY NEEDED FOR CONSTIPATION insulin glargine [Lantus Solostar U-100 Insulin] 100 unit/mL (3 mL) insulin pen 24 unit SUBCUT QPM lidocaine 5 % adhesive patch,medicated 1 patch topical QAM Rx Instructions: leave on most painful area for up to 12 hrs Dulera 50-5 mcg/actuation HFA aerosol inhaler 2 inh inhalation BID ferrous sulfate 325 mg (65 mg iron) tablet 325 mg PO Q48H potassium citrate 10 mEq (1,080 mg) tablet extended release 10 meq PO BID cetirizine [Zyrtec] 10 mg tablet 5 mg PO DAILY vitamin B complex [Vitamins B Complex] Capsule 1 cap PO DAILY Activity Restrictions: Activity as Tolerated Diet: Diabetic Health Concerns: you came into the hospital with altered mental status. Your ammonia level was elevated but not extremely so. Since you have come in your mental status is improved and your ammonia level has stayed about the same. You also had an elevated white blood cell count and this rash on the backs of your lower legs looked warm and red like you had a secondary infection there. We placed you on IV antibiotics and the redness has improved in your legs. In the meantime you have felt better and are back to being your self.Your white blood cell count has come back down to normal. I would recommend that you follow-up with your primary care doctor within the next week or so. I would recommend that you finish all of the Keflex that I have sent in to your pharmacy. You take this 4 times a day. The best way to remember it is breakfast, lunch, dinner and bedtime. You only need to take it for 5 days. Additionally I have sent a cream into the pharmacy. I would like you to put this on the backs of your legs where the red bumpy rash is. I think that you have an irritation of the skin which is causing you to scratch which is breaking the skin and allowing bacteria in. If we can relieve the irritation we can prevent further episodes of cellulitis. Other than the topical cream and 5 days of antibiotics, I am making no changes to your medications. Print Language: Belarusian Patient Instructions: Cellulitis Dc Follow-up Care: DARRELL NIEVES MD [Primary Care Provider, Internal Medicine] Vitals documented within 30 minutes of discharge?: Yes"
[2025-01-27 13:36] VITALS: BP 124/55; TEMP 97.5; O2SAT 98
== END 2025-01-27 13:55 | disposition home or self-care (01) | DRG 71 ==
LOC: ED 10:13 → MS2 13:40
PROVIDERS: ADMIT Specialist; ATTEND Specialist
DX: J44.9 Chronic obstructive pulmonary disease, unspecified; N18.9 Chronic kidney disease, unspecified; M54.9 Dorsalgia, unspecified; E11.22 Type 2 diabetes mellitus with diabetic chronic kidney disease; L03.116 Cellulitis of left lower limb; Z79.4 Long term (current) use of insulin; E03.9 Hypothyroidism, unspecified; L03.115 Cellulitis of right lower limb; K74.60 Unspecified cirrhosis of liver; G93.40 Encephalopathy, unspecified; D64.9 Anemia, unspecified; D50.9 Iron deficiency anemia, unspecified; R53.1 Weakness; G89.29 Other chronic pain; Z79.890 Hormone replacement therapy; E11.9 Type 2 diabetes mellitus without complications; Z79.899 Other long term (current) drug therapy

== ENCOUNTER 2025-02-13 14:58 | Observation (INO) ==
--- OUTSIDE RECORDS SUMMARY | 2025-02-13 15:09 | EXTERNAL MEDICAL SUMMARY RPT | Continuity of Care Document ---
Author Organization [place] Address [address] [place] [id number] Phone Problems date description facility 2024-12-21 15:44 Anemia, unspecified [facility] 2024-12-21 15:44 Other specified soft tissue dis orders [facility] 2024-12-21 15:44 Weakness [facility] 2025-01-04 10:27 Right lower quadrant pain [facility] 2025-01-04 10:28 Right lower quadrant pain [facility] 2025-01-04 10:31 [facility] 2025-01-25 13:41 Encephalopathy, unspecified [facility] 2025-01-25 13:41 [facility] left lower [facility] 2025-01-25 14:06 Encephalopathy, unspecified [facility] 2025-01-25 14:06 Cellulitis of left lower limb [facility] 2025-01-25 17:06 Encephalopathy, unspecified [facility] 2025-01-25 17:06 Cellulitis of left lower limb [facility] 2025-01-26 02:23 Encephalopathy, unspecified [facility] 2025-01-26 02:23 Cellulitis of left lower limb [facility] 2025-01-27 02:50 Hypothyroidism, unspecified [facility] 2025-01-27 02:50 Type 2 diabetes mellitus withou t complications [facility] 2025-01-27 02:50 Encephalopathy, unspecified [facility] 2025-01-27 02:50 Cellulitis of right lower limb [facility] 2025-01-27 02:50 Cellulitis of left lower limb [facility] 2025-01-27 10:26 Hypothy[facility], [facility] 2025-01-27 10:26 Type 2 diabetes mellitus withou t complications [facility] 2025-01-27 10:26 Encephalopathy, unspecified [facility] 2025-01-27 10:26 Cellulitis of right lower limb [facility] 2025-01-27 10:26 Cellulitis of left lower limb [facility] 2025-01-27 11:19 Hypothyroidism, unspecified [facility] 2025-01-27 11:19 Type 2 diabetes mellitus withou t complications [facility] 2025-01-27 11:19 Encephalopathy, unspecified [facility] 2025-01-27 11:19 Cellulitis of right lower limb [facility] 2025-01-27 11:19 Cellulitis of left lower limb [facility] 2025-01-27 13:26 Hypothyroidism, unspecified [facility] 2025-01-27 13:26 Type 2 diabetes mellitus withou t complications [facility] 2025-01-27 13:26 Encephalopathy, unspecified [facility] 2025-01-27 13:26 Cellulitis of right lower limb [facility] 2025-01-27 13:26 Cellulitis of left lower limb [facility] 2025-01-27 13:55 Hypothyroidism, unspecified [facility] 2025-01-27 13:55 Type 2 diabetes mellitus withou t complications [facility] 2025-01-27 13:55 Encephalopathy, unspecified [facility] 2025-01-27 13:55 Cellulitis of right lower limb [facility] 2025-01-27 13:55 Cellulitis of left lower limb [facility] 2025-01-29 07:43 Hypothyroidism, unspecified [facility] 2025-01-29 07:43 Type 2 diabetes mellitus withou t complications [facility] 2025-01-29 07:43 Encephalopathy, unspecified [facility] 2025-01-29 07:43 Cellulitis of right lower limb [facility] 2025-01-29 07:43 Cellulitis of left lower limb [facility] 2025-01-29 07:43 Disorientation, unspecified [facility] 2025-01-29 07:43 Weakness [facility] Results/Labs test date facility value unit notes Result panel 1 NUCLEATED RED BLOOD CELLS AUTO 2024-12-18 19:03 [facility] 0.0 /100wbc (missing) NRBC ABSOLUTE COUNT (AUTO) 2024-12-18 19:03 [facility] 0.00 x10 3/ul (missing) BASOPHILS # (AUTO) 2024-12-18 19:03 [facility] 0.1 10 3/ul (missing) EOSINOPHILS # (AUTO) 2024-12-18 19:03 [facility] 0.2 10 3/ul (missing) BILIRUBIN,TOTAL 2024-12-18 19:03 [facility] 0.5 mg/dl As of December 2022 testing method has changed, this may include reference ranges. MONOCYTES # (AUTO) 2024-12-18 19:03 [facility] 1.0 10 3/ul (missing) CREATININE 2024-12-18 19:03 [facility] 1.0 mg/dl As of December 2022 testing method has changed, this may include reference ranges. ALBUMIN/GLOBULIN RATIO 2024-12-18 19:03 [facility] 1.2 (missing) (missing) LYMPHOCYTES # (AUTO) 2024-12-18 19:03 [facility] 1.5 10 3/ul (missing) WHITE BLOOD COUNT 2024-12-18 19:03 [facility] 10.4 x10 3/ul (missing) SODIUM 2024-12-18 19:03 [employer] 134 mmol/l (missing) IRON 2024-12-18 19:03 [facility] 14 ug/dl As of December 2022 testing method has changed, this may include reference ranges. RED CELL DISTRIBUTION WIDTH 2024-12-18 19:03 [facility] 18.9 % (missing) GLUCOSE 2024-12-18 19:03 [facility] 189 mg/dl As of December 2022 testing method has changed, this may include reference ranges. RBC MORPHOLOGY (MULTIPLE) 2024-12-18 19:03 [facility] 2+ MICROCYTOSIS (missing) (missing) GLOBULIN 2024-12-18 19:03 [facility] 2.7 g/dl (missing) RED BLOOD COUNT 2024-12-18 19:03 [facility] 2.73 10 6/ul (missing) HCT - HEMATOCRIT 2024-12-18 19:03 [facility] 20.5 % (missing) MEAN CORPUSCULAR HEMOGLOBIN 2024-12-18 19:03 [facility] 20.9 pg (missing) BUN - BLOOD UREA NITROGEN 2024-12-18 19:03 [facility] 21 mg/dl As of December 2022 testing method has changed, this may include reference ranges. PLT - PLATELET COUNT 2024-12-18 19:03 [facility] 238 10 3/ul (missing) CARBON DIOXIDE - CO2 2024-12-18 19:03 [facility] 27 mmol/l As of December 2022 testing method has changed, this may include reference ranges. MEAN CORPUSCULAR HGB CONC 2024-12-18 19:03 [facility] 27.8 g/dl (missing) % IRON SATURATION 2024-12-18 19:03 [employer] 3 % (missing) RBC MORPHOLOGY (MULTIPLE) 2024-12-18 19:03 [facility] 3+ ANISOCYTOSIS (missing) (missing) RBC MORPHOLOGY (MULTIPLE) 2024-12-18 19:03 [facility] 3+ HYPOCHROMASIA (missing) (missing) ALBUMIN 2024-12-18 19:03 [facility] 3.2 g/dl As of December 2022 testing method has changed, this may include reference ranges. POTASSIUM 2024-12-18 19:03 [facility] 3.3 mmol/l As of December 2022 testing method has changed, this may include reference ranges. ALT ALANINE AMINOTRANSFERASE 2024-12-18 19:03 [facility] 30 iu/l As of December 2022 testing method has changed, this may include reference ranges. TRANSFERRIN 2024-12-18 19:03 [facility] 310 mg/dl As of December 2022 testing method has changed, this may include reference ranges. TOTAL IRON BINDING CAPACITY 2024-12-18 19:03 [facility] 434 ug/dl (missing) AST ASPARTATE AMINOTRANSFERASE 2024-12-18 19:03 [facility] 46 iu/l As of December 2022 testing method has changed, this may include reference ranges. BNP - B-NATRIURETIC PEPTIDE 2024-12-18 19:03 [facility] 487 pg/ml (missing) HGB - HEMOGLOBIN 2024-12-18 19:03 [facility] 5.7 g/dl Called to ED/SHIRA WATKINS by Luciano Hernandez MT([facility]) at 191012/18/24. Read back(Y/N)? Y TOTAL PROTEIN 2024-12-18 19:03 [facility] 5.9 g/dl As of December 2022 testing method has changed, this may include reference ranges. GFR - MDRD 2024-12-18 19:03 [facility] 54 (missing) Social History date description facility
[2025-02-13 15:37] LABS: HCT - HEMATOCRIT 33.8 % (37.0-47.0); HGB - HEMOGLOBIN 10.7 g/dL (12.0-16.0); MEAN PLATELET VOLUME 11.1 fL (7.9-10.8); NRBC ABSOLUTE COUNT (AUTO) 0.00 x10^3/uL; NUCLEATED RED BLOOD CELLS AUTO 0.0 /100WBC; PLT - PLATELET COUNT 208 10^3/uL (130-450); RED CELL DISTRIBUTION WIDTH 18.3 % (12.0-15.0)
[2025-02-13 15:50] LABS: ALT ALANINE AMINOTRANSFERASE 21.0 IU/L (10-60); AST ASPARTATE AMINOTRANSFERASE 23.0 IU/L (10-42); BUN - BLOOD UREA NITROGEN 50.0 mg/dL (6-20); CARBON DIOXIDE - CO2 30.0 mmol/L (21-32); CREATININE 1.3 mg/dL (0.6-1.3); GFR - MDRD 40.0 (>89)
--- NOTE | 2025-02-13 16:14 | ED Physician Documentation ---
History of Present Illness Stated complaint Stated Complaint: AMS Chief complaint Chief Complaint: Neuro History obtained from History obtained from: Patient and EMS History of Present Illness Pain level max: 0 Pain level now: 0 Additonal information Additional information: Patient is a 74-year-old female brought in by for altered mental status. Contacted EMS and she was brought in by ambulance. He states that over the past several days she has had a gradual decline in her mental status. Similar to prior episodes of hepatic encephalopathy. No fevers. No chills. No falls. No trauma. He states usually she can walk with a walker but now it is taken about 45 minutes to go from the bedroom to the bathroom. Slow to respond verbally as well. No focal neurological deficits. She is supposed to be on lactulose at home. Reportedly takes this somewhat intermittently. No vomiting. No fevers. No chills. Review of Systems Constitutional Denies: Fever or Chills Ears, nose, mouth, and throat Denies: Neck pain Cardiovascular Denies: chest pain or palpitations Respiratory Denies: Cough Gastrointestinal Denies: Vomiting Musculoskeletal Denies: Back pain or Neck pain Integumentary/Breast Denies: Rash Meds/Allgy Home Medications Ambulatory Orders Medication Instructions Recorded Confirmed albuterol sulfate 2.5 mg/3 mL 2.5 mg inhalation Q4H OH N 01/25/25 01/25/25 (0.083 %) solution for nebulization shortness of breat h or wheezing albuterol sulfate 90 mcg/actuation 2 puff inhalation Q ID 01/25/25 01/25/25 aerosol inhaler cetirizine 10 mg tablet (Zyrtec) 5 mg PO DAILY 5 01/25/25 ferrous sulfate 325 mg (65 mg 325 mg PO Q48H 01/25/25 01/25/25 iron) tablet furosemide 40 mg tablet 40 mg PO TID 01/25/25 hydrochlorothiazide 25 mg tablet 25 mg PO DAILY PRN FL UID OVERLOAD 01/25/25 01/25/25 insulin glargine 100 unit/mL (3 24 unit subcut QPM 01/25/25 mL) subcutaneous pen (Lantus Solostar U-100 Insulin) lactulose 10 gram/15 mL oral 20 - 40 ml PO BID PRN con stipation 01/25/25 01/25/25 solution (Enulose) levothyroxine 75 mcg tablet 75 mcg PO QDAC 01/25/25 lidocaine 5 % topical patch 1 patch topical QAM 01/25/25 mometasone-formoterol HFA 50 mcg-5 2 inh inhalation BI D 01/25/25 01/25/25 mcg/actuation aerosol inhaler (Dulera) nortriptyline 10 mg capsule 10 mg PO HS 01/25/2501/25 nystatin 100,000 unit/gram topical 1 applic topical BI D 01/25/25 01/25/25 ointment oxycodone 5 mg tablet 5 - 10 mg PO BID PRN pain 01/25/25 potassium citrate 10 mEq (1,080 10 meq PO BID 01/25/25 01/25/25 mg) tablet,extended release spironolactone 100 mg tablet 100 mg PO DAILY 01/25/25 01/25/25 vitamin B complex (Vitamins B 1 cap PO DAILY 01/25/25 01/25/25 Complex capsule) cephalexin 500 mg capsule 500 mg PO QID #20 caps 01/27 clobetasol 0.05 % topical cream 1 applic topical BID 1 week #45 01/27/25 grams Allergies Allergies Allergy/AdvReac Type Severity Reaction Status Date / Time Penicillins Allergy Severe Anaphylaxis Verified 02/13/25 15:04 hydromorphone (From Dilaudid) Allergy Intermediate Headache Verified 02/13/25 15:04 Sulfa (Sulfonamide Allergy Mild Nausea Verified 02/13/25 15:04 Antibiotics) PFSH Active Problems All Active Problems (Updated 02/13/25 @ 17:38 by Vicente Maciel MD) Cirrhosis (Acute) Acute hepatic encephalopathy (Acute) Dermatitis (Acute) Bilateral lower leg cellulitis (Acute) Hypothyroid (Acute) Cellulitis of left leg (Acute) Iron deficiency anemia (Acute) Heme positive stool (Acute) Acute anemia (Acute) Hepatocellular damage (Acute) Ascites (Acute) Medical History Medical History Diabetes type 2, controlled Family History Family History Other Depressed Social History Social History Smoking Status: Smoker current status unk Do you dip or chew tobacco?: No Do you vape?: No Level: Assisted Do you feel safe in your home environment?: Yes History of physical, verbal, emotional, or financial abuse?: No Substance Use: denies use POLST Patient has POLST: No Exam Exam Vital Signs: Vital Signs x48h Temp Pulse Resp BP Pulse Ox 02/13/25 15:01 36.6 C 94 18 157/76 H 99 Constitutional normal general appearance and no apparent distress Patient is slow to respond, staring into space, no nystagmus. Does respond but slowly. HENMT oropharynx normal moist mucous membranes Eyes PERRL and EOMs intact bilaterally Neck/C-Spine visual inspection normal Respiratory breath sounds equal bilaterally, normal respiratory effort and clear to auscultation bilaterally Cardiovascular normal heart rate noted and regular rhythm noted Gastrointestinal abdomen normal to inspection, abdomen soft to palpation, nontender to palpation and nondistended Genitourinary no CVA tenderness Extremities no edema Neurology no focal motor deficit noted, no sensory deficits noted and speech normal Able to move all of her limbs. Normal door puller strength bilaterally. Asterixis in the hands Psychiatry Patient is oriented to person Skin skin color normal Results Vitals Vitals: Vital Signs - 24 hr 02/13/25 15:01 02/13/25 15:03 Temperature 36.6 C Temperature Source Temporal Artery Scan Pulse Rate 94 Respiratory Rate 18 Blood Pressure 157/76 H O2 Saturation 99 O2 Source Room air Pain Intensity 0 0 Oxygen O2 Source Room air Labs Labs: Laboratory Tests 02/13/25 15:33 WBC 10.2 RBC 3.86 L Hgb 10.7 L Hct 33.8 L MCV 87.6 MCH 27.7 MCHC 31.7 L RDW 18.3 H Plt Count 208 MPV 11.1 H Neut # (Auto) 7.9 H Lymph # (Auto) 1.3 L [place] # (Auto) 0.8 Eos # (Auto) 0.1 Baso # (Auto) 0.1 Absolute Nucleated RBC 0.00 Nucleated RBC % 0.0 Sodium 131 L Potassium 4.1 Chloride 91 L Carbon Dioxide 30 Anion Gap 10.0 BUN 50 H Creatinine 1.3 Estimated GFR (MDRD) 40 L Glucose 348 H Calcium 10.0 Total Bilirubin 0.6 AST 23 ALT 21 Alkaline Phosphatase 155 H Ammonia 68.1 Total Protein 7.6 Albumin 4.0 Globulin 3.6 Albumin/Globulin Ratio 1.1 Lipase 45 Rads (name of study) Head CT: Relevant Findings:: Final report received PD Medical Decision Making ED course Complexity details: reviewed results, re-evaluated patient, considered differential and d/w patient ED course: 74-year-old female with what appears to be hepatic encephalopathy. Exam is consistent with this. Her ammonia is not elevated. Given lactulose. Head CT does not show any acute abnormalities. BUN is elevated as is her glucose. Given lactulose here. Will admit the patient for altered mental status, likely due to hepatic encephalopathy. Discussed the case with the hospitalist who accepts. This document was made in part using voice recognition software. While efforts are made to proofread this document, sound alike and grammatical errors may occur. Discharge Plan Discharge Patient Disposition: ED Place in Observation Condition: Stable Clinical Impression: Acute hepatic encephalopathy Interventions: ED Admission Assessment Last Done: 02/13/25 16:45 Vitals documented within 30 minutes of discharge?: Yes
--- NOTE | 2025-02-13 16:22 | HISTORY & PHYSICAL EXAMINATION ---
Chief Complaint Chief Complaint Chief Complaint: Confusion History of Present Illness Admitted From Admitted From:: Home History Obtained From Records Reviewed: EMR, [facility] records requested History obtained from: Patient, patient's at baseline Exam Limitations: Slow to respond History of Present Illness HPI Comment/Other: Patient is a 74-year-old female with a known history of cirrhosis, unknown etiology who presents with slowing, confusion. Per at bedside, she has been very slow to respond over the last couple days. He is the one that gives her all her medications, and she has been doing her lactulose twice a day. He states that she only has 1 bowel movement a day, sometimes 2. He noticed that for the past 3 days, she is much slower to respond, and takes a longer time to process things. Patient is alert and oriented x 3, but does take longer to respond. She denies any fevers, chills, abdominal pain, dysuria, urinary incontinence, etc. She also denies any cough, chest pain, shortness of breath. On admission, she was afebrile, saturating 99% on room air, respiratory rate was 18, heart rate was 89, blood pressure was 139/71. Lab work was reviewedshe has no white count, her hemoglobin is stable at 10.7. Her sodium is 131, her creatinine is 1.3, her glucose is elevated at 348. Her ALP is elevated at 155. Per her , she was admitted at [facility] last month when she was admitted for fluid overload. She had a paracentesis done at that time. She also followed with GI after that, who placed her on lactulose. Meds/Allgy Home Medications Ambulatory Orders Medication Instructions Recorded Confirmed albuterol sulfate 2.5 mg/3 mL 2.5 mg inhalation Q4H DC N 01/25/25 01/25/25 (0.083 %) solution for nebulization shortness of breat h or wheezing albuterol sulfate 90 mcg/actuation 2 puff inhalation Q ID 01/25/25 01/25/25 aerosol inhaler cetirizine 10 mg tablet (Zyrtec) 5 mg PO DAILY 5 01/25/25 ferrous sulfate 325 mg (65 mg 325 mg PO Q48H 01/25/25 01/25/25 iron) tablet furosemide 40 mg tablet 40 mg PO TID 01/25/25 hydrochlorothiazide 25 mg tablet 25 mg PO DAILY PRN FL UID OVERLOAD 01/25/25 01/25/25 insulin glargine 100 unit/mL (3 24 unit subcut QPM 01/25/25 mL) subcutaneous pen (Lantus Solostar U-100 Insulin) lactulose 10 gram/15 mL oral 20 - 40 ml PO BID PRN con stipation 01/25/25 01/25/25 solution (Enulose) levothyroxine 75 mcg tablet 75 mcg PO QDAC 01/25/25 lidocaine 5 % topical patch 1 patch topical QAM 01/25/25 mometasone-formoterol HFA 50 mcg-5 2 inh inhalation BI D 01/25/25 01/25/25 mcg/actuation aerosol inhaler (Dulera) nortriptyline 10 mg capsule 10 mg PO HS 01/25/2501/25 nystatin 100,000 unit/gram topical 1 applic topical BI D 01/25/25 01/25/25 ointment oxycodone 5 mg tablet 5 - 10 mg PO BID PRN pain 01/25/25 potassium citrate 10 mEq (1,080 10 meq PO BID 01/25/25 01/25/25 mg) tablet,extended release spironolactone 100 mg tablet 100 mg PO DAILY 01/25/25 01/25/25 vitamin B complex (Vitamins B 1 cap PO DAILY 01/25/25 01/25/25 Complex capsule) cephalexin 500 mg capsule 500 mg PO QID #20 caps 01/27 clobetasol 0.05 % topical cream 1 applic topical BID 1 week #45 01/27/25 grams Allergies Allergies Allergy/AdvReac Type Severity Reaction Status Date / Time Penicillins Allergy Severe Anaphylaxis Verified 02/13/25 15:04 hydromorphone (From Dilaudid) Allergy Intermediate Headache Verified 02/13/25 15:04 Sulfa (Sulfonamide Allergy Mild Nausea Verified 02/13/25 15:04 Antibiotics) PFSH Active Problems All Active Problems (Updated 02/13/25 @ 17:38 by Vicente Maciel MD) Cirrhosis (Acute) Acute hepatic encephalopathy (Acute) Dermatitis (Acute) Bilateral lower leg cellulitis (Acute) Hypothyroid (Acute) Cellulitis of left leg (Acute) Iron deficiency anemia (Acute) Heme positive stool (Acute) Acute anemia (Acute) Hepatocellular damage (Acute) Ascites (Acute) Medical History Medical History Diabetes type 2, controlled Family History Family History Other Depressed Social History Social History Do you dip or chew tobacco?: No Do you vape?: No Level: Assisted Home Mobility Equipment: Walker Do you feel safe in your home environment?: Yes History of physical, verbal, emotional, or financial abuse?: No Substance Use: denies use POLST Patient has POLST: No Review of Systems Constitutional Reports: Weakness and Poor appetite; Denies: Fatigue, Fever, Chills or Malaise Eyes Reports: Blurry vision; Denies: Pain, Irritation, Vision loss, Diplopia or Eye discomfort Ears, nose, mouth, and throat Denies: Ear pain, Hearing loss, Tinnitus, Nose bleeds, Nasal discharge, Mouth lesions or Bleeding gums Cardiovascular Denies: Irregular heart rate, chest pain, palpitations, edema, Syncope or shortness of breath with exertion Respiratory Denies: Shortness of breath, Cough, Sputum production or Wheezing Gastrointestinal Reports: Abdominal distention; Denies: Abdominal pain, Nausea, Vomiting, Heartburn, Diarrhea or Constipation Genitourinary Denies: Painful urination, Urinary frequency or Urinary urgency Musculoskeletal Reports: Back pain (chronic); Denies: Extremity pain, Extremity swelling or Joint pain Integumentary/Breast Denies: Rash, Itching, Dryness, Redness or Skin pain Neurological Reports: General weakness; Denies: Headache, Weakness in extremities, Numbness in extremities, Abnormal gait or Dizziness Psychiatric Denies: Depression, Anxiety, Mood swings or Panic attacks Endocrine Denies: Excessive urination, Excessive thirst or Fatigue Hematologic/Lymphatic Denies: Anemia, Easy bruising or Easy bleeding Allergic/Immunologic Denies: Hives, Tongue swelling, Facial swelling or Wheezing Prior Level of Functionality: Dependent on for ADLS. Exam Exam Vital Signs: Vital Signs x48h Temp Pulse Pulse Resp BP BP Pulse Ox 02/13/25 16:50 97.2 F L 89 18 139/71 H 97 02/13/25 15:01 97.9 F 94 18 157/76 H 99 Constitutional normal general appearance, no apparent distress, average body habitus and no limitations HENMT normocephalic, head/scalp atraumatic and hearing grossly normal bilaterally Eyes PERRL, EOMs intact bilaterally and conjunctivae normal Neck/C-Spine visual inspection normal, trachea midline and cervical spine nontender Chest inspection of chest normal Respiratory breath sounds equal bilaterally, normal respiratory effort, clear to auscultation bilaterally, no wheezes, no rales and no retractions Cardiovascular normal heart rate noted, regular rhythm noted, no gallop, no rub and no murmur Gastrointestinal abdomen normal to inspection, abdomen soft to palpation, nontender to palpation and normoactive bowel sounds No ascites noted Genitourinary no CVA tenderness and bladder normal to palpation Back/Pelvis spine normal to inspection Extremities normal to inspection, normal to palpation, no tenderness and full ROM Trace edema Neurology no movement abnormality noted and no focal motor deficit noted Positive asterixis Psychiatry mental status grossly normal and oriented x3 Slow to respond Skin skin color normal, no rash, no lesions, no wounds and no jaundice No jaundice, no scleral icterus noted Conclusion/Plan Problem List (1) Acute hepatic encephalopathy: Plan: Abdomen/pelvis CT from 12/29 shows findings suggestive of chronic diffuse hepatocellular disease with portal hypertension and moderate amount of ascites. Per at bedside, last month at [facility], she had a paracentesis done. She was admitted for fluid overload; she was told she had a normal echo. Fluid overload state was likely due to hepatic dysfunction. Since discharge, she has followed up with gastroenterology once. She was started on lactulose. Plan is for biopsy and further treatment at follow-up appointment in about 3 months. Patient presents today with confusion and being slow to respond. No abdominal pain, minimal ascites noted. No leukocytosis, no urinary symptoms. Ammonia is only 68.1. Per , he has been giving her lactulose twice a day. She has 1-2 bowel movements a day usually. While here, we will continue lactulose 4 times a day and titrate for bowel movements. Patient's mentation is already improving since being here. MELD score of 10. Maddrey of 2.4. She needs continued follow up with hepatology. (2) Diabetes type 2, controlled: Plan: Continue low-dose sliding scale, hypoglycemic protocol, Lantus 20 units at night. (3) Cirrhosis: Plan: Unclear etiology of cirrhosis. Follows up with GI in the outpatient setting. Plan for biopsy. Continue Lasix, spironolactone, lactulose. Qualifiers: Ascites presence: without ascites Hepatic cirrhosis type: unspecified hepatic cirrhosis Qualified Code(s): K74.60 - Unspecified cirrhosis of liver Lab Results Lab results reviewed: Yes 02/13/25 15:33 02/13/25 15:33 Diagnostic Imaging Results Diagnostic Imaging Results: positive Final report reviewed Core Measures Anticipated LOS I expect patient to be DC'd or transferred within 96 hours.: Yes DVT/VTE - Prophylaxis VTE/DVT Device ordered at admit?: Yes VTE/DVT Prophylaxis med ordered at admit?: Yes
[2025-02-13] MEDS: LACTULOSE 10 GM /15 ML UDC PO STA (16:31)
--- NOTE | 2025-02-13 16:45 | CT Report ---
PROCEDURE: CT Head WO INDICATIONS: altered mental status TECHNIQUE: CT of the head was performed, without intravenous contrast. Reformats: Coronal and sagittal. For radiation dose reduction, the following was used: automated exposure control, adjustment of mA and/or kV according to patient size. COMPARISON: 01/25/2025. FINDINGS: Image quality: Diagnostic. CSF spaces: Basal cisterns are patent. No extra-axial fluid collections. Ventricles are normal in size and shape. Brain: No midline shift. No intracranial mass effect or hemorrhage. Molina- white matter interface is normal. Age appropriate volume loss and periventricular white matter hypoattenuation, likely chronic ischemic change. Skull and face: Calvarium and visualized facial bones are intact, without suspicious lesions. Sinuses: Visualized sinuses and mastoids are clear. IMPRESSION: No acute intracranial pathology. Reviewed by: Giovani Driver MD on 02/13/2025 4:43 PM PDT Approved by: Giovani Driver MD on 02/13/2025 4:43 PM PDT Station ID: [id number]
[2025-02-13] MEDS ORDERED: SODIUM CHLORIDE FLUSH 0.9% 10 ML SYRINGE IVP PRN (17:04)
[2025-02-13] MEDS ORDERED: ONDANSETRON ODT 4 MG TABLET TL PRN (17:04)
[2025-02-13] MEDS ORDERED: ONDANSETRON 4 MG/2 ML VIAL IVP PRN (17:04)
[2025-02-13] MEDS: LACTULOSE 10 GM /15 ML UDC PO SCH (17:31)
[2025-02-13] MEDS: SODIUM CHLORIDE FLUSH 0.9% 10 ML SYRINGE IVP SCH (17:31)
[2025-02-13] MEDS: INSULIN GLARGINE-YFGN 300 UNIT/3 ML PEN SUBQ SCH (20:52)
[2025-02-13] MEDS: INSULIN LISPRO 300 UNIT/3 ML PEN SUBQ SCH (20:52)
[2025-02-13] MEDS: FUROSEMIDE 40 MG TABLET PO SCH (21:03)
[2025-02-14 01:11] LABS: KETONES,URINE (UA) NEGATIVE (NEGATIVE); OCCULT BLOOD,URINE NEGATIVE (NEGATIVE)
[2025-02-14 01:12] LABS: GLUCOSE, URINE (UA) 250 mg/dL (NEGATIVE)
[2025-02-14 01:20] LABS: AMPHETAMINE SCREEN,URINE NEGATIVE (NEGATIVE); BARBITURATE SCREEN,UR NEGATIVE (NEGATIVE); BENZODIAZEPINES SCREEN, URINE NEGATIVE (NEGATIVE); BUPRENORPHINE SCREEN, URINE NEGATIVE (NEGATIVE); COCAINE SCREEN URINE NEGATIVE (NEGATIVE); METHADONE SCREEN, URINE NEGATIVE (NEGATIVE); METHAMPHETAMINES SCREEN, URINE NEGATIVE (NEGATIVE); OPIATE SCREEN, URINE NEGATIVE (NEGATIVE); THC CANNABINOID SCREEN, URINE NEGATIVE (NEGATIVE)
[2025-02-14 04:55] LABS: HCT - HEMATOCRIT 33.2 % (37.0-47.0); HGB - HEMOGLOBIN 10.5 g/dL (12.0-16.0); MEAN PLATELET VOLUME 10.7 fL (7.9-10.8); PLT - PLATELET COUNT 204.0 10^3/uL (130-450); RED CELL DISTRIBUTION WIDTH 18.0 % (12.0-15.0)
[2025-02-14 05:13] LABS: ALT ALANINE AMINOTRANSFERASE 22.0 IU/L (10-60); AST ASPARTATE AMINOTRANSFERASE 26.0 IU/L (10-42); BUN - BLOOD UREA NITROGEN 45.0 mg/dL (6-20); CARBON DIOXIDE - CO2 30.0 mmol/L (21-32); CREATININE 1.3 mg/dL (0.6-1.3); GFR - MDRD 40.0 (>89)
[2025-02-14 06:47] LABS: INR 1.1 (0.8-1.2); PT - PROTHROMBIN TIME 12.7 secs (9.9-12.6)
[2025-02-14 08:00] VITALS: TEMP 98.1
[2025-02-14] MEDS: SPIRONOLACTONE 25 MG TABLET PO SCH (08:06)
[2025-02-14] MEDS ORDERED: ACETAMINOPHEN 325 MG TABLET PO PRN (08:18)
--- NOTE | 2025-02-14 08:31 | Discharge Summary ---
"Discharge Summary Admit Date: 02/13/25 Discharge Date: 02/14/25 Discharging Provider: Dr. Vicente Maciel Primary Care Provider: Darrell Boyle Code Status: Do Not Attempt Resuscitation Discharge Facility Name: Home DIAGNOSES Admission Diagnoses: Discharge Diagnoses with Status of Each Condition: Acute hepatic encephalopathyabdomen/pelvis CT from 12/29 shows findings suggestive of chronic diffuse hepatocellular disease. Last month at [facility], patient was diagnosed with presumed nonalcoholic fatty liver disease, had a paracentesis completed as well. Since discharge, she has followed up with gastroenterology once, and was started on lactulose, which she has been taking regularly. She was given an extra dose of lactulose, and was advised to titrate for 2 bowel movements/day. As such, she will likely need to increase her home lactulose. Type 2 diabetes controlledcontinue home Lantus 20 units at night, sliding scale insulin. Cirrhosislikely NAFLD based on [facility] notes. Plan for outpatient GI follow-up and biopsy. Continue Lasix, spironolactone, lactulose. HPI History of Present Illness: Patient is a 74-year-old female with a known history of cirrhosis, unknown etiology who presents with slowing, confusion. Per at bedside, she has been very slow to respond over the last couple days. He is the one that gives her all her medications, and she has been doing her lactulose twice a day. He states that she only has 1 bowel movement a day, sometimes 2. He noticed that for the past 3 days, she is much slower to respond, and takes a longer time to process things. Patient is alert and oriented x 3, but does take longer to respond. She denies any fevers, chills, abdominal pain, dysuria, urinary incontinence, etc. She also denies any cough, chest pain, shortness of breath. On admission, she was afebrile, saturating 99% on room air, respiratory rate was 18, heart rate was 89, blood pressure was 139/71. Lab work was reviewedshe has no white count, her hemoglobin is stable at 10.7. Her sodium is 131, her creatinine is 1.3, her glucose is elevated at 348. Her ALP is elevated at 155. Per her , she was admitted at [facility] last month when she was admitted for fluid overload. She had a paracentesis done at that time. She also followed with GI after that, who placed her on lactulose. CONSULTS | PROCEDURES Procedures: Head CT HOSPITAL COURSE Hospital Course: Patient is 74-year-old female with a history of nonalcoholic fatty liver disease, diabetes mellitus, insulin-dependent who presented with slowing, altered mental status, confusion. Her ammonia was found to be 68. Urinalysis was negative for infection. She had no abdominal tenderness or concern for SBP. She appeared euvolemic. Her Lasix was continued. For altered mentation, CT head was negative. UA negative for infection. No signs of SBP. Her lactulose dose was increased. The next morning, her ammonia had halved. Her mentation had also improved. She had a large bowel movement. She was deemed suitable for discharge home with close follow up with PCP, GI doctor. Her was advised to give extra dose of lactulose if her mentation worsened at home. He demonstrated understanding. ALLERGIES Allergies Allergy/AdvReac Type Severity Reaction Status Date / Time Penicillins Allergy Severe Anaphylaxis Verified 02/13/25 15:04 hydromorphone (From Dilaudid) Allergy Intermediate Headache Verified 02/13/25 15:04 Sulfa (Sulfonamide Allergy Mild Nausea Verified 02/13/25 15:04 Antibiotics) MEDICATIONS Ambulatory Orders Medication Instructions Recorded Confirmed albuterol sulfate 2.5 mg/3 mL 2.5 mg inhalation Q4H IL N 01/25/25 02/14/25 (0.083 %) solution for nebulization shortness of breat h or wheezing albuterol sulfate 90 mcg/actuation 2 puff inhalation Q ID 01/25/25 02/14/25 aerosol inhaler cetirizine 10 mg tablet (Zyrtec) 5 mg PO DAILY 2 5 02/14/25 ferrous sulfate 325 mg (65 mg 325 mg PO DAILY 01/25/25 02/14/25 iron) tablet furosemide 40 mg tablet 40 mg PO TID 01/25/25 insulin glargine 100 unit/mL (3 20 unit subcut QPM 02/14/25 mL) subcutaneous pen (Lantus Solostar U-100 Insulin) levothyroxine 75 mcg tablet 50 mcg PO QDAC 01/25/25 lidocaine 5 % topical patch 1 patch topical QAM 02/14/25 nortriptyline 10 mg capsule 10 mg PO HS 01/25/2502/14 nystatin 100,000 unit/gram topical 1 applic topical BI D 01/25/25 02/14/25 ointment oxycodone 5 mg tablet 5 - 10 mg PO BID PRN pain 02/14/25 potassium citrate 10 mEq (1,080 10 meq PO BID 01/25/25 02/14/25 mg) tablet,extended release spironolactone 100 mg tablet 100 mg PO DAILY 01/25/25 02/14/25 vitamin B complex (Vitamins B 1 cap PO DAILY 01/25/25 02/14/25 Complex capsule) lactulose 10 gram/15 mL oral 20 - 40 ml PO TID #1,200 mL 02/14/25 02/14/25 solution (Enulose) mometasone-formoterol HFA 200 1 - 2 puff inhalation BI D 02/14/25 02/14/25 mcg-5 mcg/actuation aerosol inhaler (Dulera) PHYSICAL EXAM AT DISCHARGE Vital Signs: Vital Signs x48h Temp Pulse Resp BP Pulse Ox 02/14/25 13:04 98.1 F 88 18 128/76 97 02/14/25 07:59 98.1 F 89 18 136/73 H 96 Constitutional normal general appearance, no apparent distress, average body habitus and no limitations HENMT normocephalic, head/scalp atraumatic and hearing grossly normal bilaterally Eyes PERRL, EOMs intact bilaterally and conjunctivae normal Neck/C-Spine visual inspection normal, trachea midline and cervical spine nontender Chest inspection of chest normal Respiratory breath sounds equal bilaterally, normal respiratory effort, clear to auscultation bilaterally, no wheezes, no rales and no retractions Cardiovascular normal heart rate noted, regular rhythm noted, no gallop, no rub and no murmur Gastrointestinal abdomen normal to inspection, abdomen soft to palpation, nontender to palpation and normoactive bowel sounds No ascites noted Genitourinary no CVA tenderness and bladder normal to palpation Back/Pelvis spine normal to inspection Extremities normal to inspection, normal to palpation, no tenderness and full ROM Trace edema Neurology no movement abnormality noted and no focal motor deficit noted Positive asterixis Psychiatry mental status grossly normal and oriented x3 Skin skin color normal, no rash, no lesions, no wounds and no jaundice No jaundice, no scleral icterus noted Rectal: negative Enlarged prostate LABS 02/14/25 04:48 02/14/25 04:48 DIAGNOSTIC IMAGING Diagnostic Imaging Results: Final report reviewed FOLLOW UP Follow Up: Follow up PCP. Follow up GI doctor. TIME SPENT Time Spent in Discharge (Minutes): 35 Discharge Plan Discharge Patient Disposition: Home, Self Care Condition: Stable Prescriptions: Continued furosemide 40 mg tablet 40 mg PO TID albuterol sulfate 2.5 mg /3 mL (0.083 %) solution for nebulization 2.5 mg inhalation Q4H PRN (Reason: shortness of breath or wheezing) Patient Comments: INHALE 3 ML FROM NEBULIZER EVERY 4 TO 6 HOURS NEEDED FOR WHEEZING OR SHORTNESS OF BREATH. nystatin 100,000 unit/gram ointment 1 applic TOPICAL BID Patient Comments: apply 1 gram to affected area twice a day spironolactone 100 mg tablet 100 mg PO DAILY levothyroxine 75 mcg tablet 50 mcg PO QDAC nortriptyline 10 mg capsule 10 mg PO HS albuterol sulfate 90 mcg/actuation HFA aerosol inhaler 2 puff INHALATION QID Patient Comments: inhale 2 puffs by mouth four times a day DO NOT EXCEED 10 puffs IN 24 HOURS oxycodone 5 mg tablet 5 - 10 mg PO BID PRN (Reason: pain) Patient Comments: TAKE 1-2 TABLETS BY MOUTH TWO TIMES DAILY NEEDED FOR PAIN. MAX DAILY AMOUNT: 15 MG. insulin glargine [Lantus Solostar U-100 Insulin] 100 unit/mL (3 mL) insulin pen 20 unit SUBCUT QPM lidocaine 5 % adhesive patch,medicated 1 patch topical QAM Rx Instructions: leave on most painful area for up to 12 hrs ferrous sulfate 325 mg (65 mg iron) tablet 325 mg PO DAILY potassium citrate 10 mEq (1,080 mg) tablet extended release 10 meq PO BID cetirizine [Zyrtec] 10 mg tablet 5 mg PO DAILY vitamin B complex [Vitamins B Complex] Capsule 1 cap PO DAILY Dulera 200-5 mcg/actuation HFA aerosol inhaler 1 - 2 puff INHALATION BID Patient Comments: INHALE 1 TO 2 PUFFS BY MOUTH AND INTO THE LUNGS TWICE DAILY. RINSE MOUTH AFTER USE. Changed lactulose [Enulose] 10 gram/15 mL solution 20 - 40 ml PO TID Qty: 1200 0RF Patient Comments: TAKE 20 TO 40 MILLILITERS TWICE DAILY NEEDED FOR CONSTIPATION Diet: Regular Interventions: Discharge Last Done: 02/14/25 13:04 Discharge Checklist - Nursing Last Done: 02/14/25 13:04 Discharge Vital Signs (30 Minutes) Last Done: 02/14/25 13:04 Health Concerns: You came in because you were confused, and a little slower to respond. This is likely due to a buildup of ammonia in your blood due to your liver disease (your liver normally excretes this). We increased your dose of lactulose, and you had a bowel movement here. Your ammonia level has halved. As discussed, if this were to happen at home, please increase your lactulose dose to titrate for at least 2 bowel movements a day. If this does not work, and you are still concerned about your mental status, please return to the emergency room. Please continue your Lasix as prescribed, and continue regular follow-up with your primary care provider to keep an eye on your kidney numbers. 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 We are glad you are feeling better, thanks for allowing us to take care of you. Print Language: Mozambican Patient Instructions: Ammonia, Hepatic Encephalopathy Stand Alone Forms: PCP List Follow-up Care: DARRELL BOYLE MD [Primary Care Provider, Internal Medicine] Vitals documented within 30 minutes of discharge?: Yes"
--- NOTE | 2025-02-14 11:35 | PHARMACY PROGRESS NOTE ---
Best Possible Medication History Admit Date and Time: 02/13/25 1620 Home Medications Medication Instructions Recorded Confirmed Type albuterol sulfate 2.5 mg/3 mL 2.5 mg inhalation Q4H OK N 01/25/25 02/14/25 History (0.083 %) solution for nebulization shortness of breat h or wheezing albuterol sulfate 90 mcg/actuation 2 puff inhalation Q ID 01/25/25 02/14/25 History aerosol inhaler cetirizine 10 mg tablet (Zyrtec) 5 mg PO DAILY 5 02/14/25 History ferrous sulfate 325 mg (65 mg 325 mg PO DAILY 01/25/25 02/14/25 History iron) tablet furosemide 40 mg tablet 40 mg PO TID 01/25/25 History insulin glargine 100 unit/mL (3 20 unit subcut QPM 02/14/25 History mL) subcutaneous pen (Lantus Solostar U-100 Insulin) lactulose 10 gram/15 mL oral 20 - 40 ml PO BID PRN con stipation 01/25/25 02/14/25 History solution (Enulose) levothyroxine 75 mcg tablet 50 mcg PO QDAC 01/25/25 History lidocaine 5 % topical patch 1 patch topical QAM 02/14/25 History nortriptyline 10 mg capsule 10 mg PO HS 01/25/2502/14 History nystatin 100,000 unit/gram topical 1 applic topical BI D 01/25/25 02/14/25 History ointment oxycodone 5 mg tablet 5 - 10 mg PO BID PRN pain 02/14/25 History potassium citrate 10 mEq (1,080 10 meq PO BID 01/25/25 02/14/25 History mg) tablet,extended release spironolactone 100 mg tablet 100 mg PO DAILY 01/25/25 02/14/25 History vitamin B complex (Vitamins B 1 cap PO DAILY 01/25/25 02/14/25 History Complex capsule) mometasone-formoterol HFA 200 1 - 2 puff inhalation BI D 02/14/25 02/14/25 History mcg-5 mcg/actuation aerosol inhaler (Dulera) Processed by: Pharmacy Medications reviewed in ED?: Yes Patient Interview: Completed Secondary Source(s): Written medication list and Other family member [facility] Statement: As the person ultimately responsible for medication therapy, providers are able to order a medication from an existing home medication list in [facility] via the "Reconcile Routine" prior to Confirmation of that medication by support manager. Such practice is discouraged except when the physician, in their clinical judgment, deems that a medical need exists for a medication without regard to previous use.
[2025-02-14] MEDS: INSULIN GLARGINE-YFGN 300 UNIT/3 ML PEN SUBQ STA (11:59)
[2025-02-14] MEDS: INSULIN LISPRO 300 UNIT/3 ML PEN SUBQ STA (12:00)
[2025-02-14 13:05] VITALS: BP 128/76; O2SAT 97
--- NOTE | 2025-02-14 13:14 | PT Plan of Care ---
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 Admitted with acute hepatic encephalopathy. Of note was recently hospitalized for similar on 01/25, dcd home 01/27. Prior to that was hospitalized at [facility] for fluid overload. Please see medical record for further PMH. Pt lives at home with Francisco who is present throughout PT eval. Pt and Francisco both report pt is Cecilia with FWW overall but Francisco assists up to maxA for transfers when needed. Cleared for eval by hospitalist. Upon PT eval, A&Ox3-4, met seated in b/s chair and initially disagreeable to PT eval; with education regarding purpose, pt reluctantly agrees. is more agreeable and open to CG education. Pt and demonstrate their techniques for STS transfers, ambulation with FWW, and transfers in/out of bed . All techniques appear safe. Overall pt requires CGA only but benefits from additional time to complete tasks and mod encouragement to participate. Pt presenting at or near baseline. She is not receptive to HH services; PT spends time educating pt and regarding RN for med management and bath-aid for hygiene assist. Pt remains resistant and states she does not want HH. Hospitalist notified. No further acute PT need indicated; eval only. PT Plan of Care Frequency Evaluation only, no further P.T. Discharge Recommendations Discharge Location Previous Living Situation Support/Services Needed With assist DC Equipment Recommended Front wheeled walker Transport Needs at Discharge Personal vehicle
== END 2025-02-14 13:06 | disposition home or self-care (01) ==
LOC: ED 14:58 → MS2 14:58
PROVIDERS: ADMIT Internal Medicine; ATTEND Internal Medicine
DX: E11.9 Type 2 diabetes mellitus without complications; K76.0 Fatty (change of) liver, not elsewhere classified; K76.82 Hepatic encephalopathy; K74.60 Unspecified cirrhosis of liver; Z79.4 Long term (current) use of insulin